=== PATIENT | male | born 1960 | race Native Hawaiian/Other Pacific Islander ===

== ENCOUNTER → 2020-08-21 15:46 | Outpatient (BNVA) | payer MEDICAID, SELFPAY | PROVIDERS: Family Provider Family Medicine; PCP Family Medicine; Visit Provider Nurse Practitioner Family | DX: Z20.828 Contact with and (suspected) exposure to other viral communicable diseases (principal); J06.9 Acute upper respiratory infection, unspecified; R43.0 Anosmia | CPT/HCPCS: 87635 ==

== ENCOUNTER 2020-09-06 12:57 | Outpatient (CLI) | payer MEDICAID, SELFPAY ==
--- NOTE | 2020-09-06 13:12 | XR_ITS ---
WS: [id number] Chest 2 views, 09/06/2020 Clinical Data: shortness of breath Comparison: PA and lateral chest, 01/16/2018. Findings: Bilateral patchy opacities are seen in both lungs. No nodules, masses or effusions are seen . The heart is enlarged. The pulmonary vascularity is not increased. No pneumothorax is seen. The aor tic arch and descending aorta show tortuosity. XR/XR chest 2V* [id number] Impression: 1. Bilateral patchy opacities throughout both lungs which may represent acute p neumonia and recommend follow-up chest x-ray in 2-3 days. 2. Cardiomegaly and atherosclerosis.
== END 2020-09-06 12:58 | disposition home or self-care (01) ==
PROVIDERS: PCP Family Medicine; Visit Provider Nurse Practitioner Family
DX: R06.02 Shortness of breath (principal); I51.7 Cardiomegaly; I70.90 Unspecified atherosclerosis
CPT/HCPCS: 71046

== ENCOUNTER 2020-09-20 14:17 | Outpatient (CLI) | payer MEDICAID, SELFPAY ==
--- NOTE | 2020-09-20 14:32 | XR_ITS ---
WS: [id number] Chest 2 views, 09/20/2020 Clinical Data: DYSPNEA ON EXERTION Comparison: PA and lateral chest, 09/06/2020. Findings: No nodules, masses or effusions are seen. The heart is enlarged. The pulmonary vascularity is not increased. No pneumothorax is seen. There are still patchy bilateral opacities in both lungs. This could represent acute and/or chronic pneumonia. The aortic arch and descending aorta are tortuo us. XR/XR chest 2V* [id number] Impression: 1 cardiomegaly and atherosclerosis. 2. Patchy opacities in both lungs which could represent acute pneumonia and rec ommend repeat chest x-ray in 5-7 days
== END 2020-09-20 14:18 | disposition home or self-care (01) ==
PROVIDERS: PCP Family Medicine; Visit Provider Family Medicine
DX: R06.09 Other forms of dyspnea (principal); U07.1 COVID-19; I51.7 Cardiomegaly; I70.90 Unspecified atherosclerosis
CPT/HCPCS: 71046

== ENCOUNTER 2020-12-12 13:18 | Outpatient (CLI) | payer MEDICAID, SELFPAY ==
--- NOTE | 2020-12-12 13:29 | XRR_ITS ---
PROCEDURE INFORMATION: Exam: XR Chest Exam date and time: 12/12/2020 1:32 PM Age: 60 years old Clinical indication: Dyspnea and shortness of breath; Additional info: Dyspnea on exertion TECHNIQUE: Imaging protocol: XR of the chest Views: 2 views. COMPARISON: CR XR chest 2V* [id number] 09/20/2020 2:37 PM FINDINGS: Lungs: Unremarkable. No consolidation. Pleural spaces: Unremarkable. No pleural effusion. No pneumothorax. Heart/Mediastinum: Unremarkable. No cardiomegaly. Bones/joints: There is a thoracolumbar spine scoliosis. XR/XR chest 2V* [id number] IMPRESSION: There are no acute concerning abnormalities.
== END 2020-12-12 13:19 | disposition home or self-care (01) ==
PROVIDERS: PCP Family Medicine; Visit Provider Family Medicine
DX: R06.09 Other forms of dyspnea (principal)
CPT/HCPCS: 71046

== ENCOUNTER → 2021-07-10 13:32 | Outpatient (BNVA) | payer MEDICAID, SELFPAY | PROVIDERS: PCP Family Medicine; Visit Provider Nurse Practitioner Family | DX: Z20.822 Contact with and (suspected) exposure to COVID-19 (principal) | CPT/HCPCS: 87635 ==

== ENCOUNTER 2022-09-05 14:07 | Emergency (ER) | payer MEDICAID, SELFPAY ==
[2022-09-05 14:14] VITALS: BP 152/94; PULSE 108; RESP 14; TEMP 36.6; O2SAT 95; BMI 46.5
[2022-09-05 16:00] VITALS: BP 160/108; PULSE 93; RESP 16; O2SAT 95
--- NOTE | 2022-09-05 16:32 | USR_ITS ---
PROCEDURE INFORMATION: Exam: US Scrotum Exam date and time: 09/05/2022 4:49 PM Age: 61 years old Clinical indication: Scrotum pain TECHNIQUE: Imaging protocol: Real-time ultrasound of the scrotum and contents with color Doppler and image documentation. COMPARISON: No relevant prior studies available. FINDINGS: Right testicle: Measures 3.9 x 2.5 x 2.2 cm. No mass. No torsion. Normal vascular flow. Left testicle: Measures 4.6 x 3 x 2.7 cm. No mass. No torsion. Normal vascular flow. Epididymides: There is increased color flow to the right epididymis. Scrotum/soft tissues: There are small bilateral hydroceles. No varicocele. US/US scrotum [id number] IMPRESSION: There is right epididymitis. There are bilateral hydroceles.
--- NOTE | 2022-09-05 16:32 | ED_ITS ---
HPI - Male Genitourinary General: Chief complaint: Urogenital-Male Stated complaint: testicle pain Time Seen by Provider: 09/05/22 16:09 Source: patient Mode of arrival: ambulatory History of Present Illness: 61-year-old male who presents to the emergency room with complaints of bilateral testicle pain for the last 2 days. Started after he was on a riding mower for an extended period of time. He denies dysuria urgency or frequency no hematuria. No fever sweats chills no previous surgeries or procedures on the testicles or scrotum. MD Complaint: testicle pain Onset (ago): day(s) (2) Duration: constant Location: right testicle and left testicle Severity: mild Quality: aching Relieving factors: none Exacerbating factors: palpation and movement Associated symptoms: Deny discharge, dysuria, fevers/chills, hematuria, nausea, rash, swelling, urinary incontinence, urinary retention, mass or vomiting Review of Systems Const: Denies: fever(s), chills, body aches, change in appetite, fatigue or malaise ENMT: Denies: throat pain, ear or mastoid pain, nasal discharge or nasal congestion Card: Denies: chest pain, edema, dyspnea on exertion or orthopnea Resp: Denies: dyspnea, productive cough or non-productive cough GI: Denies: nausea or vomiting : Reports: genital pain and testicular pain; Denies: flank pain, dysuria, urinary frequency, urinary incontinence, hematuria, testicular mass or scrotal swelling Musc: Denies: back pain Skin/Breast: Denies: rash or pruritus [facility] ED PFSH: Medical History (Updated 09/12/22 @ 06:00 by Philipp Aguirre DO) GERD (gastroesophageal reflux disease) Hyperlipidemia Hypothyroidism Type 2 diabetes mellitus Social History Smoking and tobacco status: never smoked Physical Exam Const: COMMON NORMALS: no acute distress GENERAL APPEARANCE: cooperative and comfortable ORIENTATION/CONSCIOUSNESS: Yes awake, Yes oriented to person, Yes oriented to place and Yes oriented to time HENMT: COMMON NORMALS: normocephalic and atraumatic HEAD & SCALP: normocephalic and atraumatic Resp: COMMON NORMALS: normal respiratory effort, No retractions, No use of accessory muscles and clear to auscultation bilaterally AUSCULTATION: clear to auscultation bilaterally Cardio: COMMON NORMALS: regular rate, regular rhythm and No murmurs present (Cardio) RATE: regular rate RHYTHM: regular rhythm GI: COMMON NORMALS: Soft to palpation and No hepatosplenomegaly present AUSCULTATION: Yes normoactive bowel sounds PALPATION: Yes Soft to palpation, No Tenderness to palpation present (GI), No Guarding due to palpation present (GI) and Yes No hepatosplenomegaly present : COMMON NORMALS: Yes no CVA tenderness BLADDER/KIDNEY EXAM: Yes no CVA tenderness MALE GROIN/PERINEUM EXAM: No ecchymosis, No edema, No erythema, No hernia and No inguinal lymphadenopathy PENIS: normal penis MEATUS: meatus normal SCROTUM: Yes testes descended bilaterally TESTES: Yes testicular lie normal, No testicular swelling, Yes testicular tenderness, No epididymal induration and Yes epididymal tenderness Back/Pelvis: COMMON NORMALS: no CVA tenderness Extremity: COMMON NORMALS: normal to inspection, capillary refill normal, no clubbing, cyanosis or edema, no calf tenderness and no pedal edema Neuro: SENSORIUM/ORIENTATION: Yes oriented to person, Yes oriented to place and Yes oriented to time Skin: COMMON NORMALS: no rashes or lesions noted GENERAL SKIN EXAM: no rashes or lesions noted Course Vital Signs: Vital signs: Vital Signs Temperature 97.8 F 09/05/22 14:14 Pulse Rate 96 09/05/22 18:22 Respiratory Rate 16 09/05/22 18:22 Blood Pressure 146/92 09/05/22 18:22 Pulse Oximetry 94 09/05/22 18:22 Oxygen Delivery Me thod 09/05/22 14:14 MDM - Male Medical Decision Making Ultrasound shows epididymitis. Suspect this is mechanical from riding in the morning for an extended period of time started on anti-inflammatories. He is not having any dysuria urgency or frequency. Return if he has further problems. UA did show white blood cells. Since he is not currently having symptoms we will wait till culture returns. Medical Records I reviewed the patient's medical records. Lab Data I reviewed the patient's lab results. 09/05/22 18:18 09/05/22 18:18 Radiology Impressions Scrotum Ultrasound 09/05/22 16:32 IMPRESSION: There is right epididymitis. There are bilateral hydroceles. Laboratory Results WBC 8.8 10^3/uL (4.0-10.0) 09/05/22 18:18 RBC 4.88 10^6/uL (4.1-5.3) 09/05/22 18:18 Hgb 15.8 g/dL (11.7-16.6) 09/05/22 18:18 Hct 46.5 % (42.0-52.0) 09/05/22 18:18 MCV 95.3 fl (80-94) H 09/05/22 18:18 MCH 32.4 pg (28.0-34.0) 09/05/22 18:18 MCHC 34.0 g/dL (30.0-36.0) 09/05/22 18:18 RDW 12.6 % (12.1-15.1) 09/05/22 18:18 Plt Count 235 10^3/cmm (130-400) 09/05/22 18:18 MPV 10.2 fL (7.4-10.4) 09/05/22 18:18 Neut % (Auto) 68.8 % 09/05/22 18:18 Lymph % (Auto) 22.1 % 09/05/22 18:18 [place] % (Auto) 6.7 % 09/05/22 18:18 Eos % (Auto) 1.0 % 09/05/22 18:18 Baso % (Auto) 0.9 % 09/05/22 18:18 Neut # (Auto) 6.02 10^3/uL (1.8-7.7) 09/05/22 18:18 Lymph # (Auto) 1.9 10^3/uL (0.8-4.8) 09/05/22 18:18 [place] # (Auto) 0.6 10^3/uL (0.2-0.9) 09/05/22 18:18 Eos # (Auto) 0.1 10^3/uL (0.0-0.8) 09/05/22 18:18 Baso # (Auto) 0.1 10^3/uL (0.0-0.1) 09/05/22 18:18 Nucleated RBC % (auto) 0 % 09/05/22 18:18 Nucleated RBCs # 0.0 /100WBC 09/05/22 18:18 Sodium 136 mmol/L (136-145) 09/05/22 18:18 Potassium 4.0 mmol/L (3.5-5.1) 09/05/22 18:18 Chloride 98 mmol/L (98-107) 09/05/22 18:18 Carbon Dioxide 24 mmol/L (22-29) 09/05/22 18:18 Anion Gap 18.0 (5-19) 09/05/22 18:18 BUN 8 mg/dL (8-23) 09/05/22 18:18 Creatinine 0.8 mg/dL (0.7-1.2) 09/05/22 18:18 GFR Calculation 98.3 mL/min (90-130) 09/05/22 18:18 Glucose 171 mg/dL (65-115) H 09/05/22 18:18 Calculated Osmolality 284 mOsm/kg (285-295) L 09/05/22 18:18 Calcium 9.1 mg/dL (8.5-10.5) 09/05/22 18:18 Urine Color Yellow (Yellow) 09/05/22 17:33 Urine Appearance Hazy (CLEAR) A 09/05/22 17:33 Urine pH 6.5 (5-7) 09/05/22 17:33 Ur Specific [place] 1.010 (1.005-1.030) 09/05/22 17:33 Urine Protein Neg (Negative) 09/05/22 17:33 Urine Glucose (UA) Norm (Normal) 09/05/22 17:33 Urine Ketones Negative (Negative) 09/05/22 17:33 Urine Blood Neg (Negative) 09/05/22 17:33 Urine Nitrate Negative (Negative) 09/05/22 17:33 Urine Bilirubin Neg (Negative) 09/05/22 17:33 Urine Urobilinogen Norm mg/dL (Negative) 09/05/22 17:33 Ur Leukocyte Esterase Trace (Negative) H 09/05/22 17:33 Urine RBC 0-4 /hpf (0-2) H 09/05/22 17:33 Urine WBC 10-15 /hpf (0-5) H 09/05/22 17:33 Ur Squamous Epith Cells 0-4 /hpf (0-5) H 09/05/22 17:33 Amorphous Sediment Not Reportable 09/05/22 17:33 Urine Bacteria 3+ /hpf (NONE) H 09/05/22 17:33 Discharge Plan Discharge Patient Disposition: Home Clinical Impression: Epididymitis Condition: Stable Prescriptions: New diclofenac sodium 75 mg tablet,delayed release (DR/EC) 75 mg PO Q12H PRN (Reason: pain) Qty: 20 0RF No Action allopurinol 300 mg tablet 300 mg PO DAILY metformin 1,000 mg tablet 1,000 mg PO BID lovastatin 20 mg tablet 20 mg PO DAILY lisinopril 40 mg tablet 40 mg PO DAILY levothyroxine 25 mcg tablet 25 mcg PO DAILY omeprazole 20 mg capsule,delayed release(DR/EC) 20 mg PO DAILY cefdinir 300 mg capsule 300 mg PO Q12H 10 Days Qty: 20 0RF Discharge Orders: Discharge ED (Routine); Ordered 09/05/22 Ordered By: Philipp Aguirre Referrals: Ceasar St MD [Primary Care Provider] - Discharge Diet: Usual diet Discharge Activity: Limit activity as instructed Activity Restrictions/Additional Instructions: You were seen today for testicular pain ultrasound showed epididymitis. Its likely from when you were riding lawnmower. Recommend good testicular support and anti-inflammatories for the next several days avoid any strenuous activity. Coding Level of Care Code ED Chocolate Finisher for Melly Horton
[2022-09-05 17:30] VITALS: BP 146/92; PULSE 98; O2SAT 93
[2022-09-05 18:13] LABS: Urine Appearance Hazy (CLEAR); Urine Color Yellow (Yellow); pH Urine 6.5 (5-7)
[2022-09-05 18:14] LABS: Add Urine Culture? Yes; Add Urine Microscopic? YES; Bacteria Urine 3+ /hpf; Bilirubin Urine Neg (Negative); Blood Urine Neg (Negative); Glucose Urine UA Norm (Normal); Ketones Urine Negative (Negative); Leukocyte Esterase Urine Trace (Negative); Nitrate Urine Negative (Negative); Protein Urine Neg (Negative); RBC Urine 0-4 /hpf (0-2); Squamous Epithelial Cell Urine 0-4 /hpf (0-5); Urobilinogen Urine Norm (Negative)
[2022-09-05 18:22] VITALS: BP 146/92; PULSE 96; RESP 16; O2SAT 94
[2022-09-05 18:26] LABS: Basophils # 0.1 10^3/uL (0.0-0.1); Basophils % 0.9 %; Eosinophils # 0.1 10^3/uL (0.0-0.8); Hematocrit 46.5 % (42.0-52.0); Hemoglobin 15.8 g/dL (11.7-16.6); Lymphocytes # 1.9 10^3/uL (0.8-4.8); Lymphocytes % 22.1 %; Mean Corpuscular Hemoglobin 32.4 pg (28.0-34.0); Mean Corpuscular Volume 95.3 fl (80-94); Mean Platelet Volume 10.2 fL (7.4-10.4); Monocytes # 0.6 10^3/uL (0.2-0.9); Monocytes % 6.7 %; Neutrophils # 6.02 10^3/uL (1.8-7.7); Neutrophils % 68.8 %; Nucleated Red Blood Cells % 0 %; Platelet Count 235 10^3/cmm (130-400); Red Blood Count 4.88 10^6/uL (4.1-5.3); Red Cell Distribution Width 12.6 % (12.1-15.1); White Blood Count 8.8 10^3/uL (4.0-10.0)
[2022-09-05 18:45] LABS: Blood Urea Nitrogen 8 mg/dL (8-23); Calcium 9.1 mg/dL (8.5-10.5); Carbon Dioxide 24 mmol/L (22-29); Chloride 98 mmol/L (98-107); Creatinine Clr Calc Pharmacy 149.2123; Glomerular Filtration Rate 98.3 mL/min (90-130); Glucose 171 mg/dL (65-115); Osmolality Calculated 284 mOsm/kg (285-295); Sodium 136 mmol/L (136-145)
== END 2022-09-05 18:23 | disposition home or self-care (01) ==
PROVIDERS: Emergency Provider Family Medicine; PCP Family Medicine
DX: N45.1 Epididymitis (principal); Z79.84 Long term (current) use of oral hypoglycemic drugs; E78.5 Hyperlipidemia, unspecified; E11.9 Type 2 diabetes mellitus without complications
CPT/HCPCS: 76870; 80048; 81001; 85025; 87077; 87086; 87186; 87491; 87591; 87661; 99284

== ENCOUNTER 2022-09-18 15:18 | Inpatient (IN) | payer MEDICAID, SELFPAY ==
[2022-09-18] VITALS (45 sets, daily range): BP systolic 108–155; BP diastolic 64–96; PULSE 61–96; RESP 16–25; TEMP 36.3–37; O2SAT 92–100; BMI 45.8
--- NOTE | 2022-09-18 16:11 | USR_ITS ---
PROCEDURE INFORMATION: Exam: US Scrotum Exam date and time: 09/18/2022 4:25 PM Age: 61 years old Clinical indication: Swelling, testicles or scrotum; Additional info: Testicle pain TECHNIQUE: Imaging protocol: Real-time ultrasound of the scrotum and contents with color Doppler and image documentation. COMPARISON: US scrotum [id number] 09/05/2022 4:49 PM FINDINGS: Right testicle: Normal. No mass. No torsion. Normal vascular flow. Left testicle: Normal. No mass. No torsion. Normal vascular flow. Epididymides: Normal. Scrotum/soft tissues: Large loculated right hydrocele. US/US scrotum [id number] IMPRESSION: 1. Testicles demonstrate color blood flow bilaterally. 2. Large loculated right hydrocele.
--- NOTE | 2022-09-18 16:23 | ED_ITS ---
HPI - Male Genitourinary General: Chief complaint: Urogenital-Male Stated complaint: testicle pain Time Seen by Provider: 09/18/22 16:23 History of Present Illness: Mr. Menendez is a 61-year-old gentleman with history of hypertension, hyperlipidemia, diabetes, obesity presenting to the emergency department due to testicular pain. He reports initially noticing symptoms on 09/05 with nontraumatic onset of right testicular swelling with mild discomfort. He was seen by PCP and then the emergency department and had an ultrasound performed which demonstrated right-sided epididymitis. He was discharged home on NSAIDs however subsequently prescription for antibiotics called in for E. c sj. He reports being on cefdinir and levofloxacin and despite this has had increasing symptoms. A few days ago he saw PCP after noticing still increased swelling despite treatment however at that time still isolated to testicle. This morning he noted increased redness and pain in the actual scrotum as well. Still able to urinate without significant symptoms. Denies rectal pain or pain with bowel movements, small amount of diarrhea earlier. No other signs of systemic illness. Overall course of symptoms is worsened despite treatment. Intensity is moderate to severe. No other specific changes in health, exacerbating, or alleviating factors identified. Onset (ago): week(s) Duration: progressively worsening Location: right testicle Radiation: right inguinal region Severity: severe Quality: aching Relieving factors: none Exacerbating factors: palpation and movement Context: other Review of Systems General: Reports: 10 or more systems reviewed and unremarkable except in HPI and below PFSH ED PFSH: Medical History Epididymal abscess GERD (gastroesophageal reflux disease) Hyperlipidemia Hypertension Hypothyroidism Morbid obesity Type 2 diabetes mellitus Social History Smoking and tobacco status: never smoked Physical Exam Const: COMMON NORMALS: alert GENERAL APPEARANCE: cooperative and well developed NUTRITIONAL APPEARANCE: obese HENMT: COMMON NORMALS: normocephalic and atraumatic HEAD & SCALP: normocephalic and atraumatic Eye: COMMON NORMALS: conjunctivae normal CONJUNCTIVA: Yes conjunctivae normal SCLERA: sclerae normal Neck/C-Spine: COMMON NORMALS: supple GENERAL: Yes trachea midline Resp: COMMON NORMALS: clear to auscultation bilaterally EFFORT & INSPECTION: Yes able to speak in complete sentences AUSCULTATION: clear to auscultation bilaterally Cardio: COMMON NORMALS: regular rate and regular rhythm RATE: regular rate RHYTHM: regular rhythm GI: COMMON NORMALS: Soft to palpation PALPATION: Yes Soft to palpation, Yes Tenderness to palpation present (GI) (Suprapubic), No Guarding due to palpation present (GI) and No Rigid due to palpation : OTHER: Marked right-sided scrotal edema with tenderness to palpation. Mild overlying skin changes though no convincing evidence of acute cellulitis. Unremarkable penis. No urethral discharge or abnormality. Extremity: GENERAL: Yes normal exam except as noted and No edema Neuro: COMMON NORMALS: moves all extremities SENSORIUM/ORIENTATION: Yes alert and No Orientation impaired Psych: COMMON NORMALS: mental status grossly normal and Normal thought process present THOUGHT PROCESS: Normal thought process present Course Vital Signs: Vital signs: Vital Signs Temperature 97.7 F 09/23/22 08:00 Pulse Rate 96 09/23/22 09:09 Respiratory Rate 18 09/23/22 10:57 Blood Pressure 118/73 09/23/22 08:00 Pulse Oximetry 95 09/23/22 09:09 Oxygen Delivery Me thod 09/23/22 09:09 Oxygen Flow Rate 2 09/20/22 20:00 MDM - Male Medical Decision Making 61-year-old gentleman presenting with testicular pain. Previously been seen and evaluated and found epididymitis but was treated with antibiotics however symptoms have worsened. Uncomfortable appearing on exam with significant scrotal swelling on the right hand tenderness palpation. Per patient report this has worsened significantly even over the past 24 hours. Labs notable for leukocytosis, metabolic panel with some evidence of metabolic arrangement likely secondary to elevated lactic acid. Transaminitis likely secondary to generalized illness. Urinary tract infection findings appear to mildly improved. Repeat scrotal ultrasound read as similar however upon interpretation by myself and urology appears to show significant differences. Given patient's history of obesity, worsening symptoms despite antibiotics, diabetes CT imaging felt to be warranted to rule out deeper infection. CT without evidence of deep tracking infection. Urology service consulted and came to evaluate patient in the emergency department. Plan to take to the OR. Patient treated in the emergency room with IV fluids, antibiotics, analgesia. Most likely cause patient symptoms is urogenital infection perhaps related to testicular abscess versus peritesticular fluid collection resulting in sepsis. The results of ED evaluation were discussed with the patient including plan for admission due to requirement for level of care not available if discharged to prevent significant worsening/deterioration. Patient agreeable with plan. Discussed with hospitalist service who was agreeable to admit patient. Medical Records I reviewed the patient's medical records. Lab Data I reviewed the patient's lab results. 09/18/22 16:55 09/18/22 16:55 Radiology Impressions Scrotum Ultrasound 09/18/22 16:11 IMPRESSION: 1. Testicles demonstrate color blood flow bilaterally. 2. Large loculated right hydrocele. Pelvis CT 09/18/22 17:14 IMPRESSION: 1. Suspected layering hyperdense material in the urinary bladder, perhaps reflecting blood products or inflammatory exudate, please correlate clinically. 2. Right complex hydrocele as seen on same-day testicular ultrasound. 3. Diverticulosis without diverticulitis. 4. Scrotal edema seen, nonspecific. Laboratory Results WBC 16.7 10^3/uL (4.0-10.0) H 09/18/22 16:55 RBC 4.43 10^6/uL (4.1-5.3) 09/18/22 16:55 Hgb 14.2 g/dL (11.7-16.6) 09/18/22 16:55 Hct 42.4 % (42.0-52.0) 09/18/22 16:55 MCV 95.7 fl (80-94) H 09/18/22 16:55 MCH 32.1 pg (28.0-34.0) 09/18/22 16:55 MCHC 33.5 g/dL (30.0-36.0) 09/18/22 16:55 RDW 12.6 % (12.1-15.1) 09/18/22 16:55 Plt Count 322 10^3/cmm (130-400) 09/18/22 16:55 MPV 9.6 fL (7.4-10.4) 09/18/22 16:55 Neut % (Auto) 78.6 % 09/18/22 16:55 Lymph % (Auto) 13.9 % 09/18/22 16:55 [place] % (Auto) 5.2 % 09/18/22 16:55 Eos % (Auto) 0.8 % 09/18/22 16:55 Baso % (Auto) 0.3 % 09/18/22 16:55 Neut # (Auto) 13.11 10^3/uL (1.8-7.7) H 09/18/22 16:55 Lymph # (Auto) 2.3 10^3/uL (0.8-4.8) 09/18/22 16:55 [place] # (Auto) 0.9 10^3/uL (0.2-0.9) 09/18/22 16:55 Eos # (Auto) 0.1 10^3/uL (0.0-0.8) 09/18/22 16:55 Baso # (Auto) 0.1 10^3/uL (0.0-0.1) 09/18/22 16:55 Nucleated RBC % (auto) 0 % 09/18/22 16:55 Nucleated RBCs # 0.0 /100WBC 09/18/22 16:55 ESR 117 mm/hr (0-10) H 09/18/22 16:55 Sodium 134 mmol/L (136-145) L 09/18/22 16:55 Potassium 4.6 mmol/L (3.5-5.1) 09/18/22 16:55 Chloride 99 mmol/L (98-107) 09/18/22 16:55 Carbon Dioxide 17 mmol/L (22-29) L 09/18/22 16:55 Anion Gap 22.6 (5-19) H 09/18/22 16:55 BUN 15 mg/dL (8-23) 09/18/22 16:55 Creatinine 1.2 mg/dL (0.7-1.2) 09/18/22 16:55 GFR Calculation 61.6 mL/min (90-130) L 09/18/22 16:55 Glucose 144 mg/dL (65-115) H 09/18/22 16:55 Calculated Osmolality 281 mOsm/kg (285-295) L 09/18/22 16:55 Lactic Acid 4.0 mmol/L (0.5-2.2) H 09/18/22 16:55 Calcium 9.0 mg/dL (8.5-10.5) 09/18/22 16:55 Total Bilirubin 0.4 mg/dL (0.15-1.2) 09/18/22 16:55 AST 68 U/L (0-40) H 09/18/22 16:55 ALT 72 U/L (0-41) H 09/18/22 16:55 Alkaline Phosphatase 133 U/L (40-130) H 09/18/22 16:55 C-Reactive Protein 202.7 mg/L (0.0-4.9) H 09/18/22 16:55 Total Protein 8.2 g/dL (6.6-8.7) 09/18/22 16:55 Albumin 3.6 g/dL (3.5-5.2) 09/18/22 16:55 Globulin 4.6 g/dL (1.3-4.6) 09/18/22 16:55 Urine Color Yellow (Yellow) 09/18/22 19:01 Urine Appearance Clear (CLEAR) 09/18/22 19: Urine pH 5 (5-7) 09/18/22 19:01 Ur Specific [place] 1.000 (1.005-1.030) L 09/18/22 19:01 Urine Protein 1+ (Negative) H 09/18/22 19:01 Urine Glucose (UA) Norm (Normal) 09/18/22 19:01 Urine Ketones Negative (Negative) 09/18/22 19:01 Urine Blood Neg (Negative) 09/18/22 19: Urine Nitrate Negative (Negative) 09/18/22 19:01 Urine Bilirubin Neg (Negative) 09/18/22 19:01 Urine Urobilinogen Norm mg/dL (Negative) 09/18/22 19:01 Ur Leukocyte Esterase Trace (Negative) H 09/18/22 19:01 Urine RBC None /hpf (0-2) 09/18/22 19:01 Urine WBC 0-4 /hpf (0-5) H 09/18/22 19:01 Ur Squamous Epith Cells None /hpf (0-5) 09/18/22 19: Amorphous Sediment Not Reportable 09/18/22 19: Urine Bacteria None /hpf (NONE) 09/18/22 19:01 Critical Care Time Critical Care Time: Critical Care Time: Yes Total Critical Care Time: 35 Attestation: Due to a high probability of clinically significant, possibly life threatening deterioration, the patient required my highest level of attention and preparedness to intervene emergently and I personally spent this critical care time directly and personally managing the patient. This critical care time included obtaining a history; examining the patient; pulse oximetry; ordering and review of laboratory and imaging studies; arranging urgent treatment with development of a management plan; evaluation of patient's response to treatment; frequent reassessment; and, discussions with other providers as applicable. It was exclusive of separately billable procedures. Primary system involved is infectious disease/ Discharge Plan Discharge Patient Disposition: Admitted As Inpatient Admit Provider: Adam Garnica Clinical Impression: Sepsis, Bacterial infection of urogenital system Condition: Stable Discharge Diet: Usual diet Discharge Activity: Increase activity as tolerated Coding Level of Care Code ED Astrophysics Teacher for Melly Horton
[2022-09-18] MEDS: morphine 4 mg/mL SDV 1 mL IVP (17:08)
[2022-09-18 17:10] LABS: Basophils # 0.1 10^3/uL (0.0-0.1); Basophils % 0.3 %; Eosinophils # 0.1 10^3/uL (0.0-0.8); Eosinophils % 0.8 %; Hematocrit 42.4 % (42.0-52.0); Hemoglobin 14.2 g/dL (11.7-16.6); Lymphocytes # 2.3 10^3/uL (0.8-4.8); Lymphocytes % 13.9 %; Mean Corpuscular HGB Conc 33.5 g/dL (30.0-36.0); Mean Corpuscular Hemoglobin 32.1 pg (28.0-34.0); Mean Corpuscular Volume 95.7 fl (80-94); Mean Platelet Volume 9.6 fL (7.4-10.4); Monocytes # 0.9 10^3/uL (0.2-0.9); Monocytes % 5.2 %; Neutrophils # 13.11 10^3/uL (1.8-7.7); Neutrophils % 78.6 %; Nucleated Red Blood Cells % 0 %; Platelet Count 322 10^3/cmm (130-400); Red Blood Count 4.43 10^6/uL (4.1-5.3); Red Cell Distribution Width 12.6 % (12.1-15.1); White Blood Count 16.7 10^3/uL (4.0-10.0)
--- NOTE | 2022-09-18 17:14 | CTR_ITS ---
PROCEDURE INFORMATION: Exam: CT Pelvis With Contrast Exam date and time: 09/18/2022 5:26 PM Age: 61 years old Clinical indication: Mass, lump, or swelling; Other: Scrotum; Additional info: Scrotal swelling/redness, diabetic, eval deeper infection TECHNIQUE: Imaging protocol: Computed tomography of the pelvis with contrast. Radiation optimization: All CT scans at this facility use at least one of these dose optimization techniques: automated exposure control; mA and/or kV adjustment per patient size (includes targeted exams where dose is matched to clinical indication); or iterative reconstruction. Contrast material: OMNIPAQUE 350; Contrast volume: 95 ml; Contrast route: INTRAVENOUS (IV); COMPARISON: US scrotum [id number] 09/18/2022 4:25 PM RADIATION DOSE METRICS: Total DLP (mGy-cm): 1347.47 FINDINGS: Stomach and bowel: Diverticulosis without diverticulitis. Appendix: No evidence of appendicitis. Intraperitoneal space: Unremarkable. No free air. No significant fluid collection. Lymph nodes: Unremarkable. No enlarged lymph nodes. Urinary bladder: Suspected layering hyperdense material in the urinary bladder, perhaps reflecting blood products or inflammatory exudate, please correlate clinically. Reproductive: Right complex hydrocele as seen on same-day testicular ultrasound. Scrotal edema seen. Bones/joints: Unremarkable. No acute fracture. No dislocation. Soft tissues: Unremarkable. CT/CT pelvis w con* [id number] IMPRESSION: 1. Suspected layering hyperdense material in the urinary bladder, perhaps reflecting blood products or inflammatory exudate, please correlate clinically. 2. Right complex hydrocele as seen on same-day testicular ultrasound. 3. Diverticulosis without diverticulitis. 4. Scrotal edema seen, nonspecific.
[2022-09-18 17:28] LABS: Alanine Aminotransferase 72 U/L (0-41); Albumin Level 3.6 g/dL (3.5-5.2); Alkaline Phosphatase 133 U/L (40-130); Anion Gap 22.6 (5-19); Aspartate Amino Transferase 68 U/L (0-40); Blood Urea Nitrogen 15 mg/dL (8-23); Carbon Dioxide 17 mmol/L (22-29); Chloride 99 mmol/L (98-107); Globulin 4.6 g/dL (1.3-4.6); Glomerular Filtration Rate 61.6 mL/min (90-130); Glucose 144 mg/dL (65-115); Osmolality Calculated 281 mOsm/kg (285-295); Potassium 4.6 mmol/L (3.5-5.1); Sodium 134 mmol/L (136-145); Total Bilirubin 0.4 mg/dL (0.15-1.2); Total Protein 8.2 g/dL (6.6-8.7)
[2022-09-18] MEDS: piperacillin-tazobactam 4.5 GM in sodium chloride 0.9% (plus) 50 ML IV (18:00)
[2022-09-18 18:01] LABS: C Reactive Protein 202.7 mg/L (0.0-4.9)
[2022-09-18] MEDS: sodium chloride 0.9% 2,328 ML 2328 ML IV (18:01)
[2022-09-18 18:04] LABS: Erythrocyte Sedimentation Rate 117 mm/hr (0-10)
--- NOTE | 2022-09-18 18:46 | P.HP_ITS ---
Providers/Chief Complaint Admitting Physician: Danika Primary Care Provider: Ceasar St MD Chief Complaint: testicle pain History of Present Illness Tesfaye Menendez is a 61 year old male admitted through the emergency department with acute right hemiscrotum. About 2 weeks ago he was seen in urgent care with complaints of increasing pain in the right hemiscrotum of 2-day duration and there was concern for possible torsion or infection so he was sent to the emergency department for evaluation for an ultrasound. Ultrasound showed normal testicles bilaterally and evidence of right epididymitis. Was placed on cefdinir. Urine culture done that day demonstrated E. coli resistant to fluoroquinolones, sensitive to ceftriaxone, cefuroxime and cefepime. Sensitive also to Bactrim tetracycline. He apparently had also been on Levaquin sometime during that time. Since that his symptoms have progressed. He started noticing more severe swelling and redness of the scrotum over the last 24 to 48 hours. Denied fever and chills. Did feel lousy overall though. No chest pain. The pain was becoming quite severe. A repeat ultrasound in the emergency department revealed a dramatically change clinical picture. The right testicle no longer looks normal. Per my eye it appeared that possibly was at the very minimum very edematous but potentially undergoing liquefied necrosis. A CT scan of the pelvis was performed. He confirmed a large fluid collection in the right hemiscrotum that corresponded to loculated fluid collection within the tunica vaginalis on the right. It was hard for me to identify the testicle itself on that study. On physical exam he has a tense indurated right hemiscrotum with testicle not palpable. Consistent with the large intra tunica vaginalis fluid collection and inflammatory process. The cord proximal to the tunica vaginalis also was indurated and tender. There is no crepitus. No fluctuance or pointing within the scrotum. It was quite uncomfortable for him though. Work-up in the emergency department showed white count had doubled from 8.8- 16.7. Creatinine was 1.2. Lactic acid 4.0 Urinalysis pending. Liver functions mildly elevated. Urine from 05 September showed 10-15 white cells and 3+ bacteria. Other comorbidities include diabetes, morbid obesity, hypertension. I recommended urgent scrotal exploration possible right orchiectomy. Hospitalist have been consulted for medical management given his other medical problems as outlined above. Explained in detail to the patient these findings and the very significant differential between his scrotal ultrasound on 09/05/2022 and today's. Hopefully this is just a scrotal abscess or inflammatory fluid collection but clearly he has gotten worse on antibiotics and there is a distinct structural change that is occurred in the right testicle per my review of the images. He will be emergently taken to the operating room as time available. Review of Systems Const: Reports: change in appetite and malaise; Denies: fever(s) or chills Eyes: Denies: change in vision or yellow eyes ENMT: Denies: hoarseness Card: Reports: dyspnea on exertion; Denies: chest pain or palpitations Resp: Denies: dyspnea or productive cough GI: Denies: abdominal pain or vomiting : Reports: genital pain and other (See HPI); Denies: flank pain or hematuria Musc: Denies: extremity swelling or joint redness Skin/Breast: Denies: rash or non-healing lesions Neuro: Denies: confusion or seizure-like activity Psych: Denies: anxiety or depression Endo: Denies: flushing Phan/Lymph: Denies: easy bruising or easy bleeding All/Imm: Denies: acute wheezing or itchy eyes Medications/Allergies Home Medications Medication Instructions Recorded Confirmed Last Taken Type allopurinol 300 mg tablet 300 mg PO DAILY 09/06/20 09/18/22 09/18/22 History diclofenac sodium 75 mg 75 mg PO Q12H PRN pain #20 tabs 09/16/22 09/18/22 Rx tablet,delayed release tramadol 100 mg tablet 100 mg PO Q6H PRN pain #30 tabs 09/16/22 09/18/22 Unknown Rx albuterol sulfate 90 mcg/actuation 2 puff inhalation Q6H PRN 09/18/22 09/18/22 Unknown History aerosol inhaler (ProAir HFA) Shortness Of Breath Or Wheezing atorvastatin 40 mg tablet 40 mg PO DAILY 09/18/22 09/18/22 09/18/22 History cefdinir 300 mg capsule 300 mg PO Q12H 09/18/22 09/18/22 09/18/22 History dulaglutide 1.5 mg/0.5 mL 1.5 mg SUBCUT Q7D 12/09/18/22 09/13/22 History subcutaneous pen injector (Trulicity) glipizide 10 mg tablet, extended 10 mg PO BID 09/18/22 09/18/22 09/18/22 History release 24 hr levofloxacin 500 mg tablet 500 mg PO DAILY 09/18/22 09/18/22 09/18/22 History levothyroxine 50 mcg tablet 50 mcg PO DAILY 09/18/22 09/18/22 09/18/22 History lisinopril 30 mg tablet 30 mg PO DAILY 09/18/22 09/18/22 09/18/22 History metformin 500 mg tablet,extended 1,000 mg PO BID 09/18/22 09/18/22 09/18/22 History release 24 hr pantoprazole 40 mg tablet,delayed 40 mg PO DAILY 09/18/22 09/18/22 09/18/22 History release zinc acetate 50 mg (zinc) capsule 50 mg PO DAILY 09/18/22 09/18/22 09/18/22 History Allergies Allergy/AdvReac Type Severity Reaction Status Date / Time No Known Allergies Allergy Verified 09/18/22 17:14 PFSH Acute PFSH: Medical History (Updated 09/18/22 @ 19:00 by Adam Garnica MD) Epididymal abscess GERD (gastroesophageal reflux disease) Hyperlipidemia Hypertension Hypothyroidism Morbid obesity Swelling of right half of scrotum Type 2 diabetes mellitus Social History Smoking and tobacco status: never smoked Vitals/I&O/Wt Last Vital Signs Temp 98.6 F 09/18/22 15:51 Pulse 88 09/18/22 15:51 Resp 18 09/18/22 17:08 BP 108/84 09/18/22 18:40 Pulse Ox 98 09/18/22 18:40 O2 Del Method 09/18/22 15:51 Weight last 48 hrs Weight 338 lb Physical Exam Const: COMMON NORMALS: alert and well nourished GENERAL APPEARANCE: well kempt and well developed ORIENTATION/CONSCIOUSNESS: not confused HENMT: COMMON NORMALS: normocephalic HEAD & SCALP: normal to inspection and normocephalic Eye: COMMON NORMALS: conjunctivae normal and no scleral icterus CONJUNCTIVA: Yes conjunctivae normal Neck/C-Spine: GENERAL: Yes normal visual inspection Lymph: OTHER: Some peripheral edema, no palpable lymph nodes Resp: COMMON NORMALS: normal respiratory effort EFFORT & INSPECTION: Yes able to speak in complete sentences, No labored and No Actively coughing OTHER: No audible wheezes Cardio: COMMON NORMALS: regular rate GI: OTHER: Truncal obesity. No masses felt. No significant tenderness. No skin crepitus. : OTHER: Uncircumcised phallus. Retractable foreskin. Distinctly abnormal appearing scrotum. The left testicle is easily palpable and there is no significant findings within the left hemiscrotum of concern. Normal epididymis etc. The right side is tense consistent with intra tunica vaginalis fluid or inflammatory changes. There is distinct redness of the skin. No crepitus. No pointing. Findings are consistent with an intrascrotal abscess/epididymal abscess which corresponds to the findings on ultrasound and CT scan. I am suspicious that the right testicle is lost in undergoing liquefaction necrosis. Neuro: COMMON NORMALS: no focal motor deficits SENSORIUM/ORIENTATION: Yes alert Psych: COMMON NORMALS: mental status grossly normal APPEARANCE: Yes grossly normal and Yes well kempt ATTITUDE: Yes calm and Yes engaged Skin: COMMON NORMALS: no rashes or lesions noted and no jaundice GENERAL SKIN EXAM: no rashes or lesions noted Data 09/18/22 16:55 09/18/22 16:55 Micro: Microbiology 09/18/22 16:55 Blood Culture - Preliminary Blood SPECIMEN COLLECTED 09/18/22 16:58 Blood Culture - Preliminary Blood SPECIMEN COLLECTED A&P Assessment and plan (1) Epididymal abscess: (2) Morbid obesity: (3) Sepsis: Attestations Medical Necessity Statement*: Acute right hemiscrotum. Need surgical exploration. 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
[2022-09-18 18:56] LABS: Reflex Lactate Order REFLEX LACTIC ORDERD
[2022-09-18 19:04] LABS: Urine Appearance Clear (CLEAR); Urine Color Yellow (Yellow)
[2022-09-18 19:05] LABS: Add Urine Microscopic? YES; Bilirubin Urine Neg (Negative); Blood Urine Neg (Negative); Glucose Urine UA Norm (Normal); Ketones Urine Negative (Negative); Leukocyte Esterase Urine Trace (Negative); Nitrate Urine Negative (Negative); Protein Urine 1+ (Negative); Urobilinogen Urine Norm (Negative); pH Urine 5 (5-7)
[2022-09-18 19:12] LABS: WBC Urine 0-4 /hpf (0-5)
[2022-09-18 19:13] LABS: Add Urine Culture? No
--- NOTE | 2022-09-18 19:27 | P.CONIM_ITS ---
Providers/Reason For Consult Consulting Physician/Specialty*: Anabelle Whitney MD/ Infectious Disease Reason for Consult*: Scrotal infection Requesting Physician: Dr. Zapien Primary Care Provider: Ceasar St MD History of Present Illness History of Present Illness Tesfaye Menendez is a 61 year old male with PMh HTN, DM, GERD who was recently seen 2 weeks ago in urgent care with complaints of right hemiscrotum pain. There was evidence of cellulitis and right epididymitis for which she was placed on cefdinir and levofloxacin. He presented to the emergency room today due to progression of symptoms. His swelling increased over the last 24 to 48 hours. The right testicle appeared to be edematous and possibly undergoing liquefied necrosis. Large fluid collection was seen in the right hemiscrotum. Patient is being taken emergently to the operating room for surgical exploration and right orchiectomy. History is gathered from talking to ER physician and review of the chart. Patient is currently in the OR therefore unable to examine him at this time. Review of Systems General: Reports: Other Medications/Allergies Home Medications Medication Instructions Recorded Confirmed Last Taken Type allopurinol 300 mg tablet 300 mg PO DAILY 09/06/20 09/18/22 09/18/22 History diclofenac sodium 75 mg 75 mg PO Q12H PRN pain #20 tabs 09/16/22 09/18/22 09/18/22 Rx tablet,delayed release tramadol 100 mg tablet 100 mg PO Q6H PRN pain #30 tabs 09/16/22 09/18/22 Unknown Rx albuterol sulfate 90 mcg/actuation 2 puff inhalation Q6H PRN 09/18/22 09/18/22 Unknown History aerosol inhaler (ProAir HFA) Shortness Of Breath Or Wheezing atorvastatin 40 mg tablet 40 mg PO DAILY 09/18/22 09/18/22 09/18/22 History cefdinir 300 mg capsule 300 mg PO Q12H 09/18/22 09/18/22 09/18/22 History dulaglutide 1.5 mg/0.5 mL 1.5 mg SUBCUT Q7D 09/18/22 09/18/22 09/13/22 History subcutaneous [facility] ([facility] glipizide 10 mg tablet, extended 10 mg PO BID 09/18/22 09/18/22 09/18/22 History release 24 hr levofloxacin 500 mg tablet 500 mg PO DAILY 09/18/22 09/18/22 09/18/22 History levothyroxine 50 mcg tablet 50 mcg PO DAILY 09/18/22 09/18/22 09/18/22 History lisinopril 30 mg tablet 30 mg PO DAILY 09/18/22 09/18/22 09/18/22 History metformin 500 mg tablet,extended 1,000 mg PO BID 09/18/22 09/18/22 09/18/22 History release 24 hr pantoprazole 40 mg tablet,delayed 40 mg PO DAILY 09/18/22 09/18/22 09/18/22 History release zinc acetate 50 mg (zinc) capsule 50 mg PO DAILY 09/18/22 09/18/22 09/18/22 History Allergies Allergy/AdvReac Type Severity Reaction Status Date / Time No Known Allergies Allergy Verified 09/18/22 17:14 Current Medications Generic Name Dose Route Start Last Admin Trade Name Freq PRN Reason Stop Dose Admin Vancomycin HCl 2,000 mg/ 500 mls @ 250 mls/hr 09/18/22 17:40 09/18/22 18:36 Sodium Chloride IV 09/18/22 19:39 250 mls/hr ONCE ONE Administration Protocol PFSH Acute PFSH: Medical History Epididymal abscess GERD (gastroesophageal reflux disease) Hyperlipidemia Hypertension Hypothyroidism Morbid obesity Swelling of right half of scrotum Type 2 diabetes mellitus Social History Smoking and tobacco status: never smoked Vitals/I&O/Wt Last Vital Signs Temp 98.6 F 09/18/22 15:51 Pulse 88 09/18/22 15:51 Resp 18 09/18/22 17:08 BP 108/84 09/18/22 18:40 Pulse Ox 98 09/18/22 18:40 O2 Del Method 09/18/22 15:51 Weight last 48 hrs Weight 153.314 kg Physical Exam Narrative: Patient currently in the OR unable to be examined, will attempt at a later time. Urinary Catheter Management: Mckeon: Cath Placed During This Visit: yes Urinary Catheter Date of Insertion: 09/18/22 Urinary Catheter Time of Insertion: 19:00 Data 09/18/22 16:55 09/18/22 16:55 Micro: Microbiology 09/18/22 16:55 Blood Culture - Preliminary Blood SPECIMEN COLLECTED 09/18/22 16:58 Blood Culture - Preliminary Blood SPECIMEN COLLECTED A&P Assessment and plan (1) Epididymal abscess: (2) Swelling of right half of scrotum: Plan Patient presenting today with worsening swelling over the scrotum, suspected to have scrotal abscess, taken to the OR for urgent surgical exploration. Failure of outpatient antibiotics including cefdinir levofloxacin. Empiric antibiotic coverage currently with piperacillin tazobactam and vancomycin. Lactate elevated, high white blood cell count, may be septic. Fluid bolus given in the ER. Blood culture taken prior to initiation of antibiotics. IV fluid normal saline at 75 cc an hour Continue home doses of allopurinol statins. Insulin sliding scale for diabetic management while inpatient. Will attempt to see patient once he is out of the OR. 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
--- NOTE | 2022-09-18 19:27 | PC.NURSE ---
attempted report, no one available. Pt now in surgery.
--- NOTE | 2022-09-18 19:38 | ANES.PREANE2 ---
Pre-Anesthetic Assessment Height/Weight: Height 1.83 m Weight 153.314 kg Temp Pulse Resp BP Pulse Ox O2 Del Method 98.6 F 96 16 146/87 94 09/18/22 15:51 09/18/22 19:28 09/18/22 19:28 09/18/22 19:28 09/18/22 19:28 09/18/22 15:51 Operation Date: 09/18/22 19:40 Proposed Procedures p Scrotal Exploration(Not Applicable) - Adam Garnica MD s Incision And Drainage(Not Applicable) - Adam Garnica MD Familial anesthetic complications: None Was Beta Griffin taken within 24 hours: N/A Was Clonidine taken within 24 hours: N/A Last intake: > 8hrs Social No alcohol and No tobacco Exam alert, oriented x 3, clear to auscultation bilaterally and regular rate & rhythm Airway Mallampati: Class IV Dentition: other (multiple missing) Comments: Comments: Full gomes Pulmonary Sleep Apnea CV/HEM Hypertension GI Gastroesophageal Reflux Disease Metabolic Diabetes Mellitus, Hyperlipidemia, Morbid Obesity and Thyroid Disease Anesthetic Plan ASA status: 3 Anesthesia: General Risk of > 500 ml blood loss (7ml/kg in children): No Medications/Allergies Home Medications Medication Instructions Recorded Confirmed Last Taken Type allopurinol 300 mg tablet 300 mg PO DAILY 09/06/20 09/18/22 09/18/22 History diclofenac sodium 75 mg 75 mg PO Q12H PRN pain #20 tabs 09/16/22 09/18/22 09/18/22 Rx tablet,delayed release tramadol 100 mg tablet 100 mg PO Q6H PRN pain #30 tabs 09/16/22 09/18/22 Unknown Rx albuterol sulfate 90 mcg/actuation 2 puff inhalation Q6H PRN 09/18/22 09/18/22 Unknown History aerosol inhaler (ProAir HFA) Shortness Of Breath Or Wheezing atorvastatin 40 mg tablet 40 mg PO DAILY 09/18/22 09/18/22 09/18/22 History cefdinir 300 mg capsule 300 mg PO Q12H 09/18/22 09/18/22 09/18/22 History dulaglutide 1.5 mg/0.5 mL 1.5 mg SUBCUT Q7D 09/18/22 09/18/22 09/13/22 History subcutaneous pen injector (Trulicity) glipizide 10 mg tablet, extended 10 mg PO BID 09/18/22 09/18/22 09/18/22 History release 24 hr levofloxacin 500 mg tablet 500 mg PO DAILY 09/18/22 09/18/22 09/18/22 History levothyroxine 50 mcg tablet 50 mcg PO DAILY 09/18/22 09/18/22 09/18/22 History lisinopril 30 mg tablet 30 mg PO DAILY 09/18/22 09/18/22 09/18/22 History metformin 500 mg tablet,extended 1,000 mg PO BID 09/18/22 09/18/22 09/18/22 History release 24 hr pantoprazole 40 mg tablet,delayed 40 mg PO DAILY 09/18/22 09/18/22 09/18/22 History release zinc acetate 50 mg (zinc) capsule 50 mg PO DAILY 09/18/22 09/18/22 09/18/22 History Allergies Allergy/AdvReac Type Severity Reaction Status Date / Time No Known Allergies Allergy Verified 09/18/22 17:14 Current Medications Generic Name Dose Route Start Last Admin Trade Name Freq PRN Reason Stop Dose Admin Vancomycin HCl 2,000 mg/ 500 mls @ 250 mls/hr 09/18/22 17:40 09/18/22 18:36 Sodium Chloride IV 09/18/22 19:39 250 mls/hr ONCE ONE Administration Protocol [facility] Anesthesia Medical History Epididymal abscess GERD (gastroesophageal reflux disease) Hyperlipidemia Hypertension Hypothyroidism Morbid obesity Swelling of right half of scrotum Type 2 diabetes mellitus Social History Smoking and tobacco status: never smoked Data Anesthesia 09/18/22 16:55 09/18/22 16:55 Short CBC 09/18/22 Range/Units 16:55 WBC 16.7 H (4.0-10.0) 10^3/uL Hgb 14.2 (11.7-16.6) g/dL Hct 42.4 (42.0-52.0) % MCV 95.7 H (80-94) fl Plt Count 322 (130-400) 10^3/cmm Neut % (Auto) 78.6 % Neut # (Auto) 13.11 H (1.8-7.7) 10^3/uL BMP 09/18/22 16:55 Sodium 134 L Potassium 4.6 Chloride 99 Carbon Dioxide 17 L BUN 15 Creatinine 1.2 Glucose 144 H Calcium 9.0 Liver Function 09/18/22 Range/Units 16:55 Total Bilirubin 0.4 (0.15-1.2) mg/dL AST 68 H (0-40) U/L ALT 72 H (0-41) U/L Alkaline Phosphatase 133 H (40-130) U/L Albumin 3.6 (3.5-5.2) g/dL Urine 09/18/22 Range/Units 19:01 Urine Color Yellow (Yellow) Urine Appearance Clear (CLEAR) Urine pH 5 (5-7) Ur Specific [place] 1.000 L (1.005-1.030) Urine Protein 1+ H (Negative) Urine Glucose (UA) Norm (Normal) Urine Ketones Negative (Negative) Urine Nitrate Negative (Negative) Urine Bilirubin Neg (Negative) Ur Leukocyte Esterase Trace H (Negative) Urine RBC None (0-2) /hpf Urine WBC 0-4 H (0-5) /hpf Coags 09/18/22 09/18/22 16:55 16:55 ESR 117 H C-Reactive Protein 202.7 H Microbiology 09/18/22 16:55 Blood Culture - Preliminary Blood SPECIMEN COLLECTED 09/18/22 16:58 Blood Culture - Preliminary Blood SPECIMEN COLLECTED Cardiac Studies: No Data to Display
--- NOTE | 2022-09-18 21:36 | P.OP_ITS ---
Operative Report Date of procedure: September 18, 2022 Pre-op diagnosis: Epididymal abscess possible testicular loss Post-op diagnosis: Same Procedure done: 1. Scrotal exploration, drainage of epididymal abscess 2. Right scrotal orchiectomy Specimens removed/disposition: 1. Wound cultures 2. Right testicle and partial spermatic cord Pathology: Same Surgeon: Danika Estimated blood loss: <50 cc Urine output: Not measured Complications: None Findings: Anesthesia: General Condition: Stable Disposition: PACU Intraoperative findings: * It did not appear that the source was in fact an epididymal abscess. * Testicle showed multiple areas of partial necrosis. Brief History: Mr. Menendez is a 61-year-old white male who I evaluated for the first time toda y in the urgency department for grossly abnormal right hemiscrotum and dramatic change in his ultrasound appearance of the scrotum showing initially normal- appearing testicle with epididymis on 09/05/2022 and what appeared to be a abscess within the tunica vaginalis and possible liquefaction necrosis of the right testicle. It was recommended he undergo scrotal exploration possible right orchiectomy. Procedure: After urgent evaluation examination and obtaining of informed consent he was taken to the operating suite on 09/18/2022 where general anesthesia was administered without difficulty after appropriate timeout was performed, SCDs confirmed to be functioning, preoperative antibiotics administered, beta-tess protocol confirmed. Prepped and draped in usual sterile fashion in dorsolithotomy position paying careful attention to voiding pressure points. A right hemiscrotal incision was made in the skin crease and taken down through the skin onto the tunica vaginalis which was somewhat dusky and thickened in appearance. The tunica vaginalis was opened and there was purulent fluid within the space and also a lot of milky fluid as well. The testicle showed some areas of pink but other areas of what appear to be ischemic necrosis. The cord was very thickened. The tunica vaginalis was then dissected from the surrounding tissue and the cord was identified and developed with blunt and sharp dissection. The cremasteric muscle fibers were divided. Cord was taken into packages first with the vas deferens and surrounding vasculature divided and ligated. And then the cord was doubly clamped and divided and the testicle and partial spermatic cord sent for pathologic evaluation. The stump of the spermatic cord had a dusky necrotic look to it. The cord was then triply ligated with 2 heavy ties and the stick tie. Hemostasis was confirmed to be meticulous. The wound was irrigated then with a Pulsavac device with saline and antibiotic. Hemostasis was confirmed. Because the abscess appeared to be for the most part contained within the tunica vaginalis it was decided to partially close the wound. Some of the deep scrotal wall was approximated loosely. A single 4 x 4 was packed into the central portion of the wound and loose abutment of the scrotal wall was performed medially and laterally to that. 2 horizontal mattress sutures of 2-0 nylon were utilized for loose approximation of the skin. Quarter inch Nu Gauze was packed in between the areas lateral and medial to the skin sutures. Fluffed dressings and ABD pad were applied externally. And maternity briefs were also applied. Mckeon catheter was placed. He tolerated procedure well without complications. Awakened in the operating room and returned to the recovery room in stable condition. He will be transferred to the [facility].
--- NOTE | 2022-09-18 21:46 | SUR.PHASEI ---
213 PT TO PACU 5 AWAKE ALERT TALKATIVE, ORIENTED X 3 MONIOTR SR NO ECTOPY, GOOD RESP EFFORT, PT BELCHING LOUDLY SEVERAL TIMES, PT VERBALLY DENIES NAUSEA AND PAIN, DRESSING TO SCROTAL AREA D/I WILSON WTIH STATLOCK TO LT INNER THIGH, YELLOW URINE, TO TUBING AND BAG, IV TO LT HAND #20 WITH NS 250 UP AT KVO RATE. ID BAND TO LT WRIST, PT ID'D WITH 2 IDENTIFERS. 2148 PT TAKING ICE CHIPS C/O OF PAIN OF 9 SEE PAIN MED GIVEN
[2022-09-18] MEDS: fentaNYL 50 mcg/mL INJ 2mL IVP (21:51)
[2022-09-18] MEDS: HYDROmorphone 1 mg/mL INJ 1 mL 0.5 MG IVP (22:00)
--- NOTE | 2022-09-18 22:05 | SUR.PHASEI ---
2154 TIMOTHY TIM AT BEDSIDE SEE EARLY PAIN MED GIVEN, ORDERS RECIEVED TO USE DILAUDID NOW FOR PAIN STARTING WITH 0.5MG PER PROTOCOL FOR PHASE 1 RECOVERY, MONITOR UNCHANGED DRESSING D/I WITH STRETCH BRIEFS IN PLACE, 2204 PT MORE RELAXED TALKATIVE STATES PAIN IS GETTING BETTER, PT TAKING OCC ICE CHIPS VSS DRESSING UNCHANGED ,
--- NOTE | 2022-09-18 22:19 | SUR.PHASEI ---
PT AWAKE ALERT TAKING ICE CHPS VSS DRESSING D/I WILSON PATENT OF YELLOW URINE, REPORT CALLED TO FLOOR.
--- NOTE | 2022-09-18 22:44 | SUR.PHASEI ---
PT TO 259 BED 2 PER CART, PT MOVED WITH AIR TRANSPORT PAD PT AWAKE ALERT DRESSING D/I HANDOFF AT BEDSIDE PT ROLLED TO LT SIDE FOR COMFORT HOB AT 10 DEGREES. PT REQUESTS TO CALL HIS DAUGHTER, NURSE ASSISTING PT WITH THIS. VSS. NO DISTRESS NOTED WILSON PATENT OF YELLOW URINE TO TUBING AND BAG. NOT EMPTIED IN PACU . WILSON PLACED AT THE END OF OR CASE.
[2022-09-18 22:54] LABS: Glucose Point of Care 155 mg/dL (70-110)
[2022-09-18] MEDS: sodium chloride 0.9% 1,000 ML 75 ML IV (22:54)
[2022-09-19] VITALS (10 sets, daily range): BP systolic 123–144; BP diastolic 66–87; PULSE 62–89; RESP 18–22; TEMP 36.7–36.8; O2SAT 22–99; BMI 45.8
[2022-09-19] MEDS: TRAMadol 50 mg Tablet 100 MG PO ×3 (00:03→17:34)
[2022-09-19] MEDS: piperacillin-tazobactam 3.375 GM in sodium chloride 0.9% (plus) 50 ML IV ×3 (01:54→17:35)
[2022-09-19 04:56] LABS: Basophils # 0.1 10^3/uL (0.0-0.1); Basophils % 0.4 %; Eosinophils # 0.1 10^3/uL (0.0-0.8); Eosinophils % 0.6 %; Hematocrit 37.6 % (42.0-52.0); Hemoglobin 12.3 g/dL (11.7-16.6); Lymphocytes # 1.5 10^3/uL (0.8-4.8); Lymphocytes % 13.2 %; Mean Corpuscular HGB Conc 32.7 g/dL (30.0-36.0); Mean Corpuscular Volume 97.9 fl (80-94); Mean Platelet Volume 9.4 fL (7.4-10.4); Monocytes # 0.6 10^3/uL (0.2-0.9); Monocytes % 5.2 %; Neutrophils # 8.91 10^3/uL (1.8-7.7); Neutrophils % 79.4 %; Nucleated Red Blood Cells % 0 %; Platelet Count 267 10^3/cmm (130-400); Red Blood Count 3.84 10^6/uL (4.1-5.3); Red Cell Distribution Width 12.8 % (12.1-15.1); White Blood Count 11.3 10^3/uL (4.0-10.0)
[2022-09-19 05:21] LABS: Lactate (Lactic Acid level) 0.9 mmol/L (0.5-2.2)
[2022-09-19 05:24] LABS: Alanine Aminotransferase 51 U/L (0-41); Albumin Level 2.9 g/dL (3.5-5.2); Alkaline Phosphatase 106 U/L (40-130); Anion Gap 15.4 (5-19); Aspartate Amino Transferase 34 U/L (0-40); Blood Urea Nitrogen 12 mg/dL (8-23); Carbon Dioxide 22 mmol/L (22-29); Chloride 104 mmol/L (98-107); Globulin 3.7 g/dL (1.3-4.6); Glucose 169 mg/dL (65-115); Osmolality Calculated 288 mOsm/kg (285-295); Potassium 4.4 mmol/L (3.5-5.1); Sodium 137 mmol/L (136-145); Total Bilirubin 0.3 mg/dL (0.15-1.2); Total Protein 6.6 g/dL (6.6-8.7)
[2022-09-19] MEDS: vancomycin 1,500 MG/300 ML PIGGYBACK 200 MG IV ×2 (06:01→20:18)
[2022-09-19 06:42] LABS: Glucose Point of Care 136 mg/dL (70-110)
[2022-09-19] MEDS: pantoprazole DR 40 mg Tablet PO (09:28)
[2022-09-19] MEDS: lisinopril 10 mg Tablet 30 MG PO (09:28)
[2022-09-19] MEDS: atorvastatin 40 mg Tablet PO (09:29)
[2022-09-19] MEDS: levothyroxine 50 mcg Tablet PO (09:29)
[2022-09-19] MEDS: allopurinol 300 mg Tablet PO (09:29)
--- NOTE | 2022-09-19 10:47 | PC.CHAP ---
Pastoral Care Encounter/Spiritual Assessment Type of Contact [] Declined security consultant visit [] Patient/Family/Request visit [] Outpatient visit [] Follow-up visit [] Physician referral [] Code/Alert [x] Routine visit [] Staff referral [] Actively dying [] Patient sleeping [] Family support [] [] Out of room [] Palliative care [] [x] Receiving care in room [] Pre-surgical visit [] Trauma [] Long length of stay [] ICU visit [] Other: Relational/Emotional Strength [x] Patient feels connected with others/family/visitors/staff [] Distress [] Loneliness/isolation [] Abandonment Spirituality of Patient [] Person of Alexia [] Attends Hindu of their Alexia [] Believes in Prayer [] Reads Bible or Mandaeism materials [] There are Spiritual issues to be addressed Telecommunications Linesworker Interventions [] Prayer [] Active listening [] Non-anxious presence [] Spiritual/emotional support [] Crisis/trauma care [] Spiritual counseling [] Bereavement support [] Provided bereavement packet [] Provided Bible/devotional materials [] Provided toy/stuffed animal, coloring book to patient or family member [] Provided Communion [] Anointing/[place] [] Salvation [] Completed spiritual assessment [] Other: Impact on Illness or Injury [] Angry [] Fearful [x] Anxious [] Often cries [] Exhaustion [] Unable to work [] Unable to attend catholic [] Unable to walk/stand [] Unable to read [] Unable to drive [] Unable to eat/drink [] Unable to sleep [] Unable to be with family [] Patient intubated [] Other: Summary had surgery has a good attitude well go home Time spent with patient 10 mins
[2022-09-19 11:49] LABS: Glucose Point of Care 171 mg/dL (70-110)
[2022-09-19] MEDS: morphine 4 mg/mL SDV 1 mL 2 MG IVP ×2 (14:32→18:15)
--- NOTE | 2022-09-19 15:40 | P.PN_ITS ---
Subjective Subjective: Status post right orchiectomy yesterday. Currently states pain is under control. Has questions about dressing changes which have been deferred to surgery. Hesitant about using insulin, explained the rationale of not using oral hypoglycemics while in the hospital and using insulin instead. Afebrile and hemodynamically stable Medications: Reviewed: Yes Vitals/I&O/Wt Last Vital Signs Temp 98.2 F 09/19/22 11:51 Pulse 62 09/19/22 11:51 Resp 18 09/19/22 14:32 BP 128/71 09/19/22 11:51 Pulse Ox 98 09/19/22 11:51 O2 Del Method 09/19/22 11:51 O2 Flow Rate 2 09/19/22 11:51 09/19/22 09/19/22 09/19/22 06:59 14:59 22:59 Intake Total 50 / 3628 1830 / 1830 Output Total 2500 / 2500 Balance 50 / 3618 -670 / -670 Weight last 48 hrs Weight 153.314 kg Weight 153.314 kg Physical Exam Narrative: General: No acute distress, AO x3 HEENT: PERRLA, pupils bilaterally equal and reactive, pallors not present Chest: Normal vesicular breath sounds, no added sounds, equal good air entry bilaterally CVS: S1-S2 regular, no murmurs, no tachycardia, no gallops, no rubs Abdomen: Soft, nontender, no organomegaly, bowel sounds present Neuro: No focal deficits, no facial deformity, AO x3, power 5/5 in all limbs Extremities: No edema clubbing or cyanosis, surgical dressing not open for exam Urinary Catheter Management: Mckeon: Cath Placed During This Visit: yes, but has since been removed by the nurse Reason for Continuing Indwelling Catheter: Acute Urinary Retention or Obstruction Urinary Catheter Date of Insertion: 09/18/22 Urinary Catheter Time of Insertion: 21:23 Date Urinary Catheter Removed: 09/18/22 Time Urinary Catheter Discontinued: 20:10 Data 09/19/22 03:38 09/19/22 03:38 Micro: Microbiology 09/18/22 20:35 Gram Stain - Final Scrotum 09/18/22 16:55 Blood Culture - Preliminary Blood SPECIMEN COLLECTED 09/18/22 16:58 Blood Culture - Preliminary Blood SPECIMEN COLLECTED A&P Assessment and plan (1) Epididymal abscess: (2) Swelling of right half of scrotum: Plan Patient presenting with worsening swelling over the scrotum, suspected to have scrotal abscess, taken to the OR for urgent surgical exploration. Status post drainage of epididymal abscess and right scrotal orchiectomy. Wound culture is pending. Failure of outpatient antibiotics including cefdinir levofloxacin. Empiric antibiotic coverage currently with piperacillin tazobactam and vancomycin. IV fluid normal saline at 75 cc an hour Continue home doses of allopurinol statins. Insulin sliding scale for diabetic management while inpatient. Attestations Medical Necessity Statement*: Per attending Coding Level of Care Code Acute Fertilizer Applicator for Melly Horton Diagnoses Epididymal abscess N45.4 Swelling of right half of scrotum N50.89
[2022-09-19 16:59] LABS: Glucose Point of Care 166 mg/dL (70-110)
--- NOTE | 2022-09-19 18:50 | P.PN_ITS ---
Subjective Subjective: Postop day #1 drainage of scrotal abscess as well as right orchiectomy. Feeling much better. Some soreness but not bad. No fever or chills. Wound inspected and looks healthy. Dressing changed. Reviewed plans with the patient and family. Culture still pending. Medications: Reviewed: Yes Vitals/I&O/Wt Last Vital Signs Temp 98.0 F 09/19/22 15:50 Pulse 68 09/19/22 15:50 Resp 20 H 09/19/22 18:15 BP 123/70 09/19/22 15:50 Pulse Ox 99 09/19/22 15:50 O2 Del Method 09/19/22 15:50 O2 Flow Rate 2 09/19/22 15:50 09/19/22 09/19/22 09/19/22 06:59 14:59 22:59 Intake Total 50 / 3628 1830 / 1830 50 / 1880 Output Total 2500 / 2500 2100 / 4600 Balance 50 / 3618 -670 / -670 -2050 / -2720 Weight last 48 hrs Weight 338 lb Weight 338 lb Physical Exam Const: COMMON NORMALS: alert and well nourished GENERAL APPEARANCE: well kempt and well developed ORIENTATION/CONSCIOUSNESS: not confused Resp: COMMON NORMALS: normal respiratory effort EFFORT & INSPECTION: Yes able to speak in complete sentences, No labored and No Actively coughing OTHER: No audible wheezes Cardio: COMMON NORMALS: regular rate RATE: regular rate GI: OTHER: Truncal obesity. No masses felt. No significant tenderness. No skin crepitus. : OTHER: Marked reduction in scrotal swelling. Wound looks healthy. Dressing was changed. No foul drainage. Skin edges look healthy as well. No evidence of accumulation of fluid. Neuro: COMMON NORMALS: no focal motor deficits SENSORIUM/ORIENTATION: Yes alert Psych: COMMON NORMALS: mental status grossly normal APPEARANCE: Yes grossly normal and Yes well kempt ATTITUDE: Yes calm and Yes engaged Urinary Catheter Management: Mckeon: Cath Placed During This Visit: yes, but has since been removed by the nurse Reason for Continuing Indwelling Catheter: Required Immobilization for Trauma or Surgery or Anesthesia Urinary Catheter Date of Insertion: 09/18/22 Urinary Catheter Time of Insertion: 21:23 Date Urinary Catheter Removed: 09/18/22 Time Urinary Catheter Discontinued: 20:10 Data 09/19/22 03:38 09/19/22 03:38 Micro: Microbiology 09/18/22 16:58 Blood Culture - Preliminary Blood NEGATIVE TO DATE 09/18/22 16:55 Blood Culture - Preliminary Blood NEGATIVE TO DATE 09/18/22 20:35 Gram Stain - Final Scrotum A&P Assessment and plan (1) Epididymal abscess: Status post drainage of epididymal abscess and right orchiectomy scrotal approach. Partial closure of the wound. (2) Morbid obesity: Plan Continue IV antibiotics and dressing changes. Attestations Medical Necessity Statement*: IV antibiotics post scrotal exploration Coding Level of Care Code Acute Automobile Leasing Supervisor for [facility] Fwd Diagnoses Epididymal abscess N45.4 Morbid obesity E66.01
[2022-09-19] MEDS: sodium chloride 0.9% 1,000 ML 75 ML IV (20:19)
[2022-09-19 20:58] LABS: Glucose Point of Care 227 mg/dL (70-110)
[2022-09-19] MEDS: insulin lispro 100 unit/1 mL SUBCUT (21:28)
[2022-09-20] VITALS (10 sets, daily range): BP systolic 138–158; BP diastolic 84–107; PULSE 63–102; RESP 18–24; TEMP 36.4–36.8; O2SAT 92–96
[2022-09-20] MEDS: piperacillin-tazobactam 3.375 GM in sodium chloride 0.9% (plus) 50 ML IV ×3 (00:28→17:05)
[2022-09-20] MEDS: polyethylene glycol 3350 Pkt 17 gm PO (01:31)
[2022-09-20] MEDS: sennosides-docusate Tablet 1 TAB PO (01:48)
[2022-09-20] MEDS: lidocaine 2% viscous 15 ML, aluminum-mag hydrox-simethicon 30 ML, sucralfate oral liq 1 GM PO (01:49)
[2022-09-20] MEDS: TRAMadol 50 mg Tablet 100 MG PO ×2 (06:27→14:16)
[2022-09-20 06:41] LABS: Glucose Point of Care 196 mg/dL (70-110)
[2022-09-20] MEDS: insulin lispro 100 unit/1 mL SUBCUT ×4 (08:18→21:56)
[2022-09-20] MEDS: vancomycin 1,500 MG/300 ML PIGGYBACK 200 MG IV ×2 (08:18→21:55)
[2022-09-20] MEDS: allopurinol 300 mg Tablet PO (08:19)
[2022-09-20] MEDS: atorvastatin 40 mg Tablet PO (08:19)
[2022-09-20] MEDS: pantoprazole DR 40 mg Tablet PO (08:19)
[2022-09-20] MEDS: lisinopril 10 mg Tablet 30 MG PO (08:19)
[2022-09-20] MEDS: levothyroxine 50 mcg Tablet PO (08:19)
[2022-09-20] MEDS: morphine 4 mg/mL SDV 1 mL 2 MG IVP ×3 (10:08→21:17)
[2022-09-20] MEDS: sodium chloride 0.9% 1,000 ML 75 ML IV (12:27)
[2022-09-20 15:28] LABS: Glucose Point of Care 173 mg/dL (70-110)
--- NOTE | 2022-09-20 15:52 | PM.PN ---
Subjective Subjective: Urology follow-up: Postop day #2, drainage is epididymal abscess and right orchiectomy with partial wound closure He is doing well. Overall feels better. Ambulated today without difficulty. Dressing change: Scrotal tissues look healthy. Dressing had some serosanguineous staining but no purulence no foul odor. No evidence of progressive infection locally. Replaced wicking dressing internally. Mckeon catheter order to be discharged. And out cath as needed. Continue wound care and antibiotics. We will plan on training his family for wound care once he is ready for discharge. Tentatively look at Friday if continues to do well Vitals/I&O/Wt Last Vital Signs Temp 97.9 F 09/20/22 15:28 Pulse 100 09/20/22 15:28 Resp 18 09/20/22 15:28 BP 145/90 09/20/22 15:28 Pulse Ox 93 09/20/22 15:28 O2 Del Method 09/20/22 15:28 O2 Flow Rate 2 09/19/22 15:50 09/20/22 09/20/22 09/20/22 06:59 14:59 22:59 Intake Total 50 / 2470 2069 Output Total 1650 / 6250 Balance -1600 / -3780 2069 Weight last 48 hrs Weight 338 lb Physical Exam Const: COMMON NORMALS: alert and well nourished GENERAL APPEARANCE: well developed ORIENTATION/CONSCIOUSNESS: not confused Resp: COMMON NORMALS: normal respiratory effort EFFORT & INSPECTION: Yes able to speak in complete sentences, No labored and No Actively coughing OTHER: No audible wheezes Cardio: COMMON NORMALS: regular rate RATE: regular rate : OTHER: Healthy appearing skin edges. No purulence. Dressing shows some serosanguineous fluid. Repacked. Lesser volume. Coming along nicely. Neuro: SENSORIUM/ORIENTATION: Yes alert Psych: COMMON NORMALS: mental status grossly normal ATTITUDE: Yes calm and Yes engaged Urinary Catheter Management: Mckeon: Cath Placed During This Visit: yes, but has since been removed by the nurse Reason for Continuing Indwelling Catheter: Required Immobilization for Trauma or Surgery or Anesthesia Urinary Catheter Date of Insertion: 09/18/22 Urinary Catheter Time of Insertion: 21:23 Date Urinary Catheter Removed: 09/18/22 Time Urinary Catheter Discontinued: 20:10 Data 09/19/22 03:38 09/19/22 03:38 Micro: Microbiology 09/18/22 16:58 Blood Culture - Preliminary Blood NEGATIVE TO DATE 09/18/22 16:55 Blood Culture - Preliminary Blood NEGATIVE TO DATE 09/18/22 20:35 Gram Stain - Final Scrotum Attestations Medical Necessity Statement*: IV antibiotics wound care. Anticipate discharge later this weekend or early next week if no evidence of progression of infectious concerns Coding Level of Care Code Acute Python Web Developer for Melly Horton
--- NOTE | 2022-09-20 16:18 | PM.PN ---
Subjective Subjective: No acute interim events. Culture is still pending. Patient wants was Trulicity in addition to insulin. Have tried to risk reduction counselor him that insulin for now will suffice, however he insists on taking his Trulicity as well. Medications: Reviewed: Yes Vitals/I&O/Wt Last Vital Signs Temp 97.9 F 09/20/22 15:28 Pulse 100 09/20/22 15:28 Resp 18 09/20/22 15:28 BP 145/90 09/20/22 15:28 Pulse Ox 93 09/20/22 15:28 O2 Del Method 09/20/22 15:28 O2 Flow Rate 2 09/19/22 15:50 09/20/22 09/20/22 09/20/22 06:59 14:59 22:59 Intake Total 50 / 2470 2069 Output Total 1650 / 6250 Balance -1600 / -3780 2069 Weight last 48 hrs Weight 153.314 kg Physical Exam Narrative: General: No acute distress, AO x3 HEENT: PERRLA, pupils bilaterally equal and reactive, pallors not present Chest: Normal vesicular breath sounds, no added sounds, equal good air entry bilaterally CVS: S1-S2 regular, no murmurs, no tachycardia, no gallops, no rubs Abdomen: Soft, nontender, no organomegaly, bowel sounds present Neuro: No focal deficits, no facial deformity, AO x3, power 5/5 in all limbs Extremities: No edema clubbing or cyanosis, surgical dressing not open for exam Urinary Catheter Management: Mckeon: Cath Placed During This Visit: yes, but has since been removed by the nurse Reason for Continuing Indwelling Catheter: Required Immobilization for Trauma or Surgery or Anesthesia Urinary Catheter Date of Insertion: 09/18/22 Urinary Catheter Time of Insertion: 21:23 Date Urinary Catheter Removed: 09/18/22 Time Urinary Catheter Discontinued: 20:10 Data 09/19/22 03:38 09/19/22 03:38 Micro: Microbiology 09/18/22 16:58 Blood Culture - Preliminary Blood NEGATIVE TO DATE 09/18/22 16:55 Blood Culture - Preliminary Blood NEGATIVE TO DATE 09/18/22 20:35 Gram Stain - Final Scrotum A&P Assessment and plan (1) Epididymal abscess: (2) Swelling of right half of scrotum: Plan Patient presenting with worsening swelling over the scrotum, suspected to have scrotal abscess, taken to the OR for urgent surgical exploration. Status post drainage of epididymal abscess and right scrotal orchiectomy. Wound culture is pending. Failure of outpatient antibiotics including cefdinir levofloxacin. Empiric antibiotic coverage currently with piperacillin tazobactam and vancomycin. d/c IVF Continue home doses of allopurinol statins. Moderate Insulin sliding scale for diabetic management while inpatient, FS well controlled Insists on taking weekly trulicity, would be okay for today alongside insulin Attestations Medical Necessity Statement*: per admitting , awaiting cx results Coding Level of Care Code Acute College Scouting Coordinator for [facility] Fwd Diagnoses Epididymal abscess N45.4 Swelling of right half of scrotum N50.89
[2022-09-20 16:49] LABS: Glucose Point of Care 256 mg/dL (70-110)
[2022-09-20 21:27] LABS: Vancomycin Trough 10.2 ug/mL (10-15)
[2022-09-20 21:37] LABS: Glucose Point of Care 258 mg/dL (70-110)
[2022-09-21] VITALS (12 sets, daily range): BP systolic 115–160; BP diastolic 83–101; PULSE 52–105; RESP 16–28; TEMP 36.5–36.7; O2SAT 91–98
[2022-09-21] MEDS: sodium chloride 0.9% 1,000 ML 75 ML IV (02:17)
[2022-09-21] MEDS: piperacillin-tazobactam 3.375 GM in sodium chloride 0.9% (plus) 50 ML IV ×3 (02:17→21:23)
[2022-09-21] MEDS: morphine 4 mg/mL SDV 1 mL 2 MG IVP ×3 (05:13→21:59)
[2022-09-21 06:50] LABS: Glucose Point of Care 192 mg/dL (70-110)
[2022-09-21] MEDS: atorvastatin 40 mg Tablet PO (08:33)
[2022-09-21] MEDS: pantoprazole DR 40 mg Tablet PO (08:33)
[2022-09-21] MEDS: lisinopril 10 mg Tablet 30 MG PO (08:33)
[2022-09-21] MEDS: levothyroxine 50 mcg Tablet PO (08:33)
[2022-09-21] MEDS: allopurinol 300 mg Tablet PO (08:33)
[2022-09-21] MEDS: insulin lispro 100 unit/1 mL SUBCUT ×4 (08:41→21:47)
[2022-09-21] MEDS: vancomycin 1,500 MG/300 ML PIGGYBACK 200 MG IV ×2 (10:18→22:53)
[2022-09-21 11:45] LABS: Glucose Point of Care 221 mg/dL (70-110)
--- NOTE | 2022-09-21 12:19 | P.PN_ITS ---
Subjective Subjective: seen this am no acute events overnight pt says his pain is controlled but at times it hurts a lot. he says he will be going home friday as per Dr. breaux. Vitals/I&O/Wt Last Vital Signs Temp 98.1 F 09/21/22 11:55 Pulse 76 09/21/22 11:55 Resp 16 09/21/22 11:55 BP 143/91 09/21/22 11:55 Pulse Ox 91 09/21/22 11:55 O2 Del Method 09/21/22 08:00 O2 Flow Rate 2 09/20/22 20:00 09/20/22 09/21/22 09/21/22 22:59 06:59 14:59 Intake Total 990 / 3060 1822.917 / 4882.917 240 / 240 Output Total 1900 / 1900 300 / 2200 225 / 225 Balance -910 / 1160 1522.917 / 2682.917 Physical Exam Narrative: General: No acute distress, AO x3, obese male laying in bed Chest: CTA b/l, no wheezes no ronchi CVS: S1-S2 regular, no murmurs, no tachycardia, no gallops, no rubs Abdomen: Soft, nontender, no organomegaly, bowel sounds present Neuro: No focal deficits, no facial deformity, AO x3, power 5/5 in all limbs Extremities: No edema clubbing or cyanosis, surgical dressing not open for exam Urinary Catheter Management: Mckeon: Cath Placed During This Visit: yes, but has since been removed by the nurse Reason for Continuing Indwelling Catheter: Required Immobilization for Trauma or Surgery or Anesthesia Urinary Catheter Date of Insertion: 09/18/22 Urinary Catheter Time of Insertion: 21:23 Date Urinary Catheter Removed: 09/18/22 Time Urinary Catheter Discontinued: 20:10 Data 09/19/22 03:38 09/19/22 03:38 Micro: Microbiology 09/18/22 20:35 Gram Stain - Final Scrotum Anaerobic Culture - Preliminary Wound Culture - Preliminary 09/19/22 16:20 MRSA Culture - Final Nose A&P Assessment and plan (1) Epididymal abscess: (2) Swelling of right half of scrotum: Plan Patient presenting with worsening swelling over the scrotum, suspected to have scrotal abscess, taken to the OR for urgent surgical exploration. Status post drainage of epididymal abscess and right scrotal orchiectomy. Wound culture is pending. Failure of outpatient antibiotics including cefdinir levofloxacin. Empiric antibiotic coverage currently with piperacillin tazobactam and vancomycin. Continue home doses of allopurinol statins. Moderate Insulin sliding scale for diabetic management while inpatient, FS well controlled Attestations Medical Necessity Statement*: awaiting culture results. per primary team. Coding Level of Care Code Acute Felt Cutting Machine Operator for [facility] Fwd Diagnoses Epididymal abscess N45.4 Swelling of right half of scrotum N50.89
--- NOTE | 2022-09-21 14:56 | PM.PN ---
Subjective Subjective: Urology follow-up: Postop day #3 Stable clinical course. No fever or chills. Pain is improving. Has been ambulatory. Has voided well since Mckeon catheter was removed. Decreased lower abdominal pain. No chest pain or shortness of breath Wound inspected. Dressing removed and it was dry with no evidence of purulence. No clear granulation tissue yet but there is no evidence of purulence or progressive infectious concerns. Will continue routine dressing changes. I expect that his clinical status will be improved well enough to be able to be discharged on Friday. He is plan on going back up to [facility] with his daughter and her family. Medications: Reviewed: Yes Vitals/I&O/Wt Last Vital Signs Temp 98.1 F 09/21/22 11:55 Pulse 76 09/21/22 11:55 Resp 16 09/21/22 11:55 BP 143/91 09/21/22 11:55 Pulse Ox 91 09/21/22 11:55 O2 Del Method 09/21/22 08:00 O2 Flow Rate 2 09/20/22 20:00 09/20/22 09/21/22 09/21/22 22:59 06:59 14:59 Intake Total 990 / 3060 1822.917 / 4882.917 740 / 740 Output Total 1900 / 1900 300 / 2200 225 / 225 Balance -910 / 1160 1522.917 / 2682.917 515 / 515 Physical Exam Const: COMMON NORMALS: no acute distress and patient oriented x3 Resp: OTHER: Unlabored. No audible wheezes. Good air movement GI: OTHER: Soft, nontender, no palpable masses. : OTHER: Uncircumcised phallus. Scrotum without erythema. Wound is darian as expected. Incision looks healthy. Dressing without foul or purulent drainage. Repacked loosely with 2 x 2 Neuro: COMMON NORMALS: patient oriented x3 Psych: COMMON NORMALS: mental status grossly normal, Normal thought process present, cooperative and speech normal SPEECH: Yes normal speech THOUGHT PROCESS: Normal thought process present Urinary Catheter Management: Mckeon: Cath Placed During This Visit: yes, but has since been removed by the nurse Reason for Continuing Indwelling Catheter: Required Immobilization for Trauma or Surgery or Anesthesia Urinary Catheter Date of Insertion: 09/18/22 Urinary Catheter Time of Insertion: 21:23 Date Urinary Catheter Removed: 09/18/22 Time Urinary Catheter Discontinued: 20:10 Data 09/19/22 03:38 09/19/22 03:38 Micro: Microbiology 09/18/22 20:35 Gram Stain - Final Scrotum Anaerobic Culture - Preliminary Wound Culture - Preliminary 09/19/22 16:20 MRSA Culture - Final Nose Attestations Medical Necessity Statement*: Recovering well from epididymal abscess status postorchiectomy. Still on IV antibiotics. Would look to discharge potentially on 09/23/2022 if acceptable from hospitalist perspective. Coding Level of Care Code Acute Press Manager for Melly Horton
[2022-09-21 17:28] LABS: Glucose Point of Care 228 mg/dL (70-110)
[2022-09-21 21:37] LABS: Glucose Point of Care 268 mg/dL (70-110)
[2022-09-22] VITALS (9 sets, daily range): BP systolic 100–153; BP diastolic 62–88; PULSE 77–106; RESP 16–19; TEMP 36.6–36.8; O2SAT 94–98
[2022-09-22] MEDS: lanolin oint 7 gm 1 APPLIC TOPICAL (00:08)
[2022-09-22] MEDS: morphine 4 mg/mL SDV 1 mL 2 MG IVP (05:11)
[2022-09-22] MEDS: piperacillin-tazobactam 3.375 GM in sodium chloride 0.9% (plus) 50 ML IV ×2 (05:12→12:07)
[2022-09-22 05:27] LABS: Basophils # 0.1 10^3/uL (0.0-0.1); Basophils % 1.1 %; Eosinophils # 0.4 10^3/uL (0.0-0.8); Eosinophils % 5.1 %; Hematocrit 43.1 % (42.0-52.0); Hemoglobin 13.8 g/dL (11.7-16.6); Lymphocytes # 1.8 10^3/uL (0.8-4.8); Lymphocytes % 23.9 %; Mean Corpuscular Hemoglobin 31.6 pg (28.0-34.0); Mean Corpuscular Volume 98.6 fl (80-94); Mean Platelet Volume 9.5 fL (7.4-10.4); Monocytes # 0.7 10^3/uL (0.2-0.9); Monocytes % 8.7 %; Neutrophils # 4.52 10^3/uL (1.8-7.7); Neutrophils % 59.6 %; Nucleated Red Blood Cells % 0 %; Platelet Count 326 10^3/cmm (130-400); Red Blood Count 4.37 10^6/uL (4.1-5.3); Red Cell Distribution Width 12.5 % (12.1-15.1); White Blood Count 7.6 10^3/uL (4.0-10.0)
[2022-09-22 06:13] LABS: Anion Gap 17.2 (5-19); Blood Urea Nitrogen 12 mg/dL (8-23); Calcium 9.6 mg/dL (8.5-10.5); Carbon Dioxide 25 mmol/L (22-29); Chloride 99 mmol/L (98-107); Glucose 172 mg/dL (65-115); Osmolality Calculated 288 mOsm/kg (285-295); Potassium 4.2 mmol/L (3.5-5.1); Sodium 137 mmol/L (136-145)
[2022-09-22 06:16] LABS: Glucose Point of Care 180 mg/dL (70-110)
--- NOTE | 2022-09-22 07:41 | P.PN_ITS ---
Subjective Subjective: Urology follow-up: Postop day #3 Doing well. More ambulatory. Decreased pain. No other complaints. Dressing changed today. Packing looks normal. No purulence. Wound is starting to close. I think he should be able to go home tomorrow. He is planning to go with his family to [facility]. When his daughter arrives tomorrow we will trend them on routine dressing changes. Recommendation will be for 2 x 2 loosely packed with less dressing packed over time and gauze dressings to cover the wound. Reviewed that he has 2 nondissolvable sutures that need to remain in place for about 2 weeks before removal either at his daughters with a local physician or here if he returns home by that time. Will be placed on SEPTRA DS based on the urine culture from 09/05/2022 Vitals/I&O/Wt Last Vital Signs Temp 97.8 F 09/22/22 05:42 Pulse 77 09/22/22 05:42 Resp 17 09/22/22 05:42 BP 100/66 09/22/22 05:42 Pulse Ox 95 09/22/22 05:42 O2 Del Method 09/21/22 20:00 O2 Flow Rate 2 09/20/22 20:00 09/21/22 09/22/22 09/22/22 22:59 06:59 14:59 Intake Total 820 / 2410 1230 / 3640 Output Total 280 / 505 Balance 820 / 2185 950 / 3135 Physical Exam Const: COMMON NORMALS: no acute distress and patient oriented x3 Neck/C-Spine: OTHER: Good range of motion Lymph: OTHER: No groin lymphadenopathy Resp: OTHER: Unlabored. No audible wheezes. Good air movement GI: OTHER: Soft, nontender, no palpable masses. : OTHER: Scrotum without erythema. Wound is darian as expected. Incision looks healthy. Packing is healthy looking. No purulent Repacked loosely with 2 x 2 Neuro: COMMON NORMALS: patient oriented x3 Psych: COMMON NORMALS: mental status grossly normal, Normal thought process present, cooperative and speech normal SPEECH: Yes normal speech THOUGHT PROCESS: Normal thought process present Urinary Catheter Management: Mckeon: Cath Placed During This Visit: yes, but has since been removed by the nurse Reason for Continuing Indwelling Catheter: Required Immobilization for Trauma or Surgery or Anesthesia Urinary Catheter Date of Insertion: 09/18/22 Urinary Catheter Time of Insertion: 21:23 Date Urinary Catheter Removed: 09/18/22 Time Urinary Catheter Discontinued: 20:10 Data 09/22/22 05:05 09/22/22 05:05 Micro: Microbiology 09/18/22 20:35 Gram Stain - Final Scrotum Anaerobic Culture - Preliminary Wound Culture - Preliminary A&P Assessment and plan (1) Epididymal abscess: Status post drainage as well as right orchiectomy for severely compromised right testicle. Plan Continued dressing changes with less packing. Cover with SEPTRA DS at discharge Anticipate discharge 09/23/2022. Attestations Medical Necessity Statement*: Should be ready for discharge tomorrow. Coding Level of Care Code Acute Component Prep Operator for Melly Horton Diagnoses Epididymal abscess N45.4
[2022-09-22] MEDS: allopurinol 300 mg Tablet PO (08:43)
[2022-09-22] MEDS: insulin lispro 100 unit/1 mL SUBCUT ×4 (08:43→21:54)
[2022-09-22] MEDS: lisinopril 10 mg Tablet 30 MG PO (08:43)
[2022-09-22] MEDS: pantoprazole DR 40 mg Tablet PO (08:43)
[2022-09-22] MEDS: atorvastatin 40 mg Tablet PO (08:43)
[2022-09-22] MEDS: levothyroxine 50 mcg Tablet PO (08:44)
[2022-09-22] MEDS: vancomycin 1,500 MG/300 ML PIGGYBACK 200 MG IV (09:39)
[2022-09-22 12:24] LABS: Glucose Point of Care 218 mg/dL (70-110)
--- NOTE | 2022-09-22 13:27 | P.PN_ITS ---
Subjective Subjective: No acute interim events. Mckeon has been discontinued, states pain is much better controlled. Plan to be discharged tomorrow. Medications: Reviewed: Yes Vitals/I&O/Wt Last Vital Signs Temp 98.2 F 09/22/22 11:51 Pulse 79 09/22/22 11:51 Resp 19 H 09/22/22 11:51 BP 128/85 09/22/22 11:51 Pulse Ox 96 09/22/22 11:51 O2 Del Method 09/22/22 08:00 O2 Flow Rate 2 09/20/22 20:00 09/21/22 09/22/22 09/22/22 22:59 06:59 14:59 Intake Total 820 / 2410 1230 / 3640 1160 / 1160 Output Total 280 / 505 Balance 820 / 2185 950 / 3135 1160 / 1160 Physical Exam Narrative: General: No acute distress, AO x3 HEENT: PERRLA, pupils bilaterally equal and reactive, pallors not present Chest: Normal vesicular breath sounds, no added sounds, equal good air entry bilaterally CVS: S1-S2 regular, no murmurs, no tachycardia, no gallops, no rubs Abdomen: Soft, nontender, no organomegaly, bowel sounds present Neuro: No focal deficits, no facial deformity, AO x3, power 5/5 in all limbs Extremities: No edema clubbing or cyanosis, surgical dressing not open for exam Urinary Catheter Management: Mckeon: Cath Placed During This Visit: yes, but has since been removed by the nurse Reason for Continuing Indwelling Catheter: Required Immobilization for Trauma or Surgery or Anesthesia Urinary Catheter Date of Insertion: 09/18/22 Urinary Catheter Time of Insertion: 21:23 Date Urinary Catheter Removed: 09/18/22 Time Urinary Catheter Discontinued: 20:10 Data 09/22/22 05:05 09/22/22 05:05 Micro: Microbiology 09/18/22 20:35 Gram Stain - Final Scrotum Anaerobic Culture - Preliminary Wound Culture - Final A&P Assessment and plan (1) Epididymal abscess: (2) Swelling of right half of scrotum: Plan Patient presenting with worsening swelling over the scrotum, suspected to have scrotal abscess, taken to the OR for urgent surgical exploration. Status post drainage of epididymal abscess and right scrotal orchiectomy. Wound culture with superficial skin paris- NO MRSA or resistant isoaltes identified per discussion with lab Planned to be discharged tomorrow with po bactrim. Will transition him to bactrim in the hospital today as he is concerned about potential for sulfa allergy. Will monitor with the change today. D/c Zosyn and vancomycin Continue home doses of allopurinol statins. Moderate Insulin sliding scale for diabetic management while inpatient, FS well controlled Attestations Medical Necessity Statement*: per admitting Coding Level of Care Code Acute House Superintendent for Melly Fwcarlos Diagnoses Epididymal abscess N45.4 Swelling of right half of scrotum N50.89
[2022-09-22] MEDS: sulfamethoxazole-trimeth DS 160-800 mg Tablet 1 TAB PO ×2 (14:33→17:19)
[2022-09-22 16:40] LABS: Glucose Point of Care 250 mg/dL (70-110)
[2022-09-22] MEDS: HYDROcodone-acetaminophen 5-325 mg Tablet 1 TAB PO (17:44)
[2022-09-22 21:20] LABS: Glucose Point of Care 268 mg/dL (70-110)
[2022-09-23 00:48] VITALS: BP 112/70; PULSE 75; RESP 24; TEMP 36.8; O2SAT 94
[2022-09-23] MEDS: HYDROcodone-acetaminophen 5-325 mg Tablet 1 TAB PO ×2 (02:49→08:52)
[2022-09-23 04:00] VITALS: BP 103/66; PULSE 68; RESP 24; TEMP 36.6; O2SAT 95
[2022-09-23 06:16] LABS: Glucose Point of Care 206 mg/dL (70-110)
[2022-09-23 07:52] LABS: Glucose Point of Care 184 mg/dL (70-110)
[2022-09-23 08:00] VITALS: BP 118/73; PULSE 76; RESP 18; TEMP 36.5; O2SAT 96
--- NOTE | 2022-09-23 08:28 | PM.DCS ---
Discharge Providers Date of Admission: 09/18/22 20:29 Date of Discharge: September 23, 2022 Attending Provider at Admission: Adam Garnica MD Attending Provider at Discharge: Adam Garnica MD Consults: Hospitalist for medical management Primary Care Provider: Ceasar St MD Diagnoses at Discharge Discharge Diagnosis (1) Epididymal abscess: Status: Resolved (2) Morbid obesity: Status: Acute (3) Hypothyroidism: Status: Acute (4) Hypertension: Status: Acute (5) GERD (gastroesophageal reflux disease): Status: Acute (6) Hyperlipidemia: Status: Acute (7) Type 2 diabetes mellitus: Status: Acute Reason for Visit Reason for Visit: testicle pain Hospital Course Hospital Course Direct admitted through the emergency department on 09/18/2022 with dramatic change in the appearance of his right hemiscrotum on ultrasound comparing it to 1 week prior. He had been on antibiotics with worsening of symptoms. Appeared septic. Taken emergently to the operating room where a large epididymal abscess was discovered and the testicle appeared to have multiple areas of necrosis. Drainage of epididymal abscess and right orchiectomy was performed. The wound was aggressively irrigated with a Pulsavac and then partially closed with packing. Postoperatively he did very well. Hospitalists were consulted for help with medical management. He was maintained on IV antibiotics. His wound was healing well at time of discharge with minimal packing required. He had 2 nonabsorbable skin sutures that will need to be removed and no sooner than 2 weeks postop. He will be traveling with his daughter and her to [facility] for convalescence. They were trained in how to manage the wound with dressing changes etc. prior to discharge. Based on the culture results he was started on SEPTRA DS while in the hospital discharged on 2-week course of that. I have instructed them to either follow-up locally with urology upon return to the area or with primary care at his daughter's location for suture removal sometime in the next couple weeks. Copies of his records have been provided so that he can take them with him. Physical Exam Const: COMMON NORMALS: no acute distress and patient oriented x3 Neck/C-Spine: OTHER: Good range of motion Lymph: OTHER: No groin lymphadenopathy Resp: OTHER: Unlabored. No audible wheezes. Good air movement GI: OTHER: Soft, nontender, no palpable masses. : OTHER: Scrotum without erythema. Wound is darian as expected. Incision looks healthy. Neuro: COMMON NORMALS: patient oriented x3 Psych: COMMON NORMALS: mental status grossly normal, Normal thought process present, cooperative and speech normal SPEECH: Yes normal speech THOUGHT PROCESS: Normal thought process present Urinary Catheter Management: Mckeon: Cath Placed During This Visit: yes, but has since been removed by the nurse Reason for Continuing Indwelling Catheter: Required Immobilization for Trauma or Surgery or Anesthesia Urinary Catheter Date of Insertion: 09/18/22 Urinary Catheter Time of Insertion: 21:23 Date Urinary Catheter Removed: 09/18/22 Time Urinary Catheter Discontinued: 20:10 Discharge Data Studies Completed and Pending Completed Studies During Hospitalization Category Date Time Status CT pelvis w con* [id number] Stat Cat Scan 09/18/22 17:14 Completed US scrotum [id number] Stat Ultrasound 09/18/22 16:11 Completed Pending at discharge Category Date Time Status Anaerobic Culture Stat Lab 09/18/22 20:35 Results Blood Culture Stat Lab 09/18/22 16:58 Results Wound Culture and Gram Stain Stat Lab 09/18/22 20:35 Results Pathology: Surgical [PTH] Routine Pth 09/18/22 21:38 Received Pathology: Surgical [PTH] Routine Pth 09/20/22 15:54 Ordered Radiology Impressions Scrotum Ultrasound 09/18/22 16:11 IMPRESSION: 1. Testicles demonstrate color blood flow bilaterally. 2. Large loculated right hydrocele. Pelvis CT 09/18/22 17:14 IMPRESSION: 1. Suspected layering hyperdense material in the urinary bladder, perhaps reflecting blood products or inflammatory exudate, please correlate clinically. 2. Right complex hydrocele as seen on same-day testicular ultrasound. 3. Diverticulosis without diverticulitis. 4. Scrotal edema seen, nonspecific. Laboratory Results WBC 7.6 10^3/uL (4.0-10.0) 09/22/22 05:05 RBC 4.37 10^6/uL (4.1-5.3) 09/22/22 05:05 Hgb 13.8 g/dL (11.7-16.6) 09/22/22 05:05 Hct 43.1 % (42.0-52.0) 09/22/22 05:05 MCV 98.6 fl (80-94) H 09/22/22 05:05 MCH 31.6 pg (28.0-34.0) 09/22/22 05:05 MCHC 32.0 g/dL (30.0-36.0) 09/22/22 05:05 RDW 12.5 % (12.1-15.1) 09/22/22 05:05 Plt Count 326 10^3/cmm (130-400) 09/22/22 05:05 MPV 9.5 fL (7.4-10.4) 09/22/22 05:05 Neut % (Auto) 59.6 % 09/22/22 05:05 Lymph % (Auto) 23.9 % 09/22/22 05:05 Lamar % (Auto) 8.7 % 09/22/22 05:05 Eos % (Auto) 5.1 % 09/22/22 05:05 Baso % (Auto) 1.1 % 09/22/22 05:05 Neut # (Auto) 4.52 10^3/uL (1.8-7.7) 09/22/22 05:05 Lymph # (Auto) 1.8 10^3/uL (0.8-4.8) 09/22/22 05:05 Lamar # (Auto) 0.7 10^3/uL (0.2-0.9) 09/22/22 05:05 Eos # (Auto) 0.4 10^3/uL (0.0-0.8) 09/22/22 05:05 Baso # (Auto) 0.1 10^3/uL (0.0-0.1) 09/22/22 05:05 Nucleated RBC % (auto) 0 % 09/22/22 05:05 Nucleated RBCs # 0.0 /100WBC 09/22/22 05:05 ESR 117 mm/hr (0-10) H 09/18/22 16:55 Sodium 137 mmol/L (136-145) 09/22/22 05:05 Potassium 4.2 mmol/L (3.5-5.1) 09/22/22 05:05 Chloride 99 mmol/L (98-107) 09/22/22 05:05 Carbon Dioxide 25 mmol/L (22-29) 09/22/22 05:05 Anion Gap 17.2 (5-19) 09/22/22 05:05 BUN 12 mg/dL (8-23) 09/22/22 05:05 Creatinine 1.0 mg/dL (0.7-1.2) 09/22/22 05:05 GFR Calculation 76.0 mL/min (90-130) L 09/22/22 05:05 Glucose 172 mg/dL (65-115) H 09/22/22 05:05 POC Glucose 184 mg/dL (70-110) H 09/23/22 07:39 Calculated Osmolality 288 mOsm/kg (285-295) 09/22/22 05:05 Lactic Acid 4.0 mmol/L (0.5-2.2) H 09/18/22 16:55 Lactate 0.9 mmol/L (0.5-2.2) 09/19/22 03:38 Calcium 9.6 mg/dL (8.5-10.5) 09/22/22 05:05 Total Bilirubin 0.3 mg/dL (0.15-1.2) 09/19/22 03:38 AST 34 U/L (0-40) 09/19/22 03:38 ALT 51 U/L (0-41) H 09/19/22 03:38 Alkaline Phosphatase 106 U/L (40-130) 09/19/22 03:38 C-Reactive Protein 202.7 mg/L (0.0-4.9) H 09/18/22 16:55 Total Protein 6.6 g/dL (6.6-8.7) 09/19/22 03:38 Albumin 2.9 g/dL (3.5-5.2) L 09/19/22 03:38 Globulin 3.7 g/dL (1.3-4.6) 09/19/22 03:38 Urine Color Yellow (Yellow) 09/18/22 19:01 Urine Appearance Clear (CLEAR) 09/18/22 19:01 Urine pH 5 (5-7) 09/18/22 19:01 Ur Specific [place] 1.000 (1.005-1.030) L 09/18/22 19:01 Urine Protein 1+ (Negative) H 09/18/22 19:01 Urine Glucose (UA) Norm (Normal) 09/18/22 19:01 Urine Ketones Negative (Negative) 09/18/22 19:01 Urine Blood Neg (Negative) 09/18/22 19:01 Urine Nitrate Negative (Negative) 09/18/22 19:01 Urine Bilirubin Neg (Negative) 09/18/22 19:01 Urine Urobilinogen Norm mg/dL (Negative) 09/18/22 19:01 Ur Leukocyte Esterase Trace (Negative) H 09/18/22 19:01 Urine RBC None /hpf (0-2) 09/18/22 19:01 Urine WBC 0-4 /hpf (0-5) H 09/18/22 19:01 Ur Squamous Epith Cells None /hpf (0-5) 09/18/22 19:01 Amorphous Sediment Not Reportable 09/18/22 19:01 Urine Bacteria None /hpf (NONE) 09/18/22 19:01 Vancomycin Trough 10.2 ug/mL (10-15) 09/20/22 18:40 Vitals Last Vital Signs Temp 97.9 F 09/23/22 04:00 Pulse 68 09/23/22 04:00 Resp 24 H 09/23/22 04:00 BP 103/66 09/23/22 04:00 Pulse Ox 95 09/23/22 04:00 O2 Del Method 09/22/22 20:00 O2 Flow Rate 2 09/20/22 20:00 Discharge Plan Discharge Patient Disposition: Home Condition: Stable Prescriptions: New sulfamethoxazole-trimethoprim 800-160 mg tablet 1 tab PO BID 7 Days Qty: 28 0RF hydrocodone-acetaminophen 5-325 mg tablet 1 tab PO Q8H PRN (Reason: pain) Qty: 10 0RF Continued allopurinol 300 mg tablet 300 mg PO DAILY diclofenac sodium 75 mg tablet,delayed release (DR/EC) 75 mg PO Q12H PRN (Reason: pain) Qty: 20 0RF tramadol 100 mg tablet 100 mg PO Q6H PRN (Reason: pain) Qty: 30 0RF atorvastatin 40 mg tablet 40 mg PO DAILY glipizide 10 mg tablet extended release 24hr 10 mg PO BID levothyroxine 50 mcg tablet 50 mcg PO DAILY pantoprazole 40 mg tablet,delayed release (DR/EC) 40 mg PO DAILY lisinopril 30 mg tablet 30 mg PO DAILY ProAir HFA 90 mcg/actuation HFA aerosol inhaler 2 puff INHALATION Q6H PRN (Reason: Shortness Of Breath Or Wheezing) metformin 500 mg tablet extended release 24 hr 1,000 mg PO BID Trulicity 1.5 mg/0.5 mL pen injector 1.5 mg SUBCUT Q7D zinc acetate 50 mg (zinc) Capsule 50 mg PO DAILY Discontinued levofloxacin 500 mg tablet 500 mg PO DAILY cefdinir 300 mg capsule 300 mg PO Q12H Discharge Orders: Discharge Order (Routine); Ordered 09/23/22 Ordered By: Adam Garnica Referrals: Ceasar St MD [Primary Care Provider] - (WILL SEE DR IN [place] GOING TO LIVE WITH DAUGHTER) Adam Garnica MD [Physician] - (SENT RECORDS WITH PATIENT LEAVING AREA WITH FAMILY WILL SEE UROLOGIST THERE ) Discharge Diet: Usual diet Discharge Activity: Increase activity as tolerated Patient Instructions: Sulfamethoxazole/Trimethoprim (By mouth) (Bactrim, Bactrim DS,..., Opioid Safety Activity Restrictions/Additional Instructions: The wound has been healing well. No evidence of progressive infection. You will need to continue dressing changes until the wound is small enough that no dressing can be packed in. I would use a 2 x 2 gauze sponge and loosely packed and no more than an inch. As the wound closes less packing will be required. Placed some gauze sponges over the packed sponge You can shower. Do not soak in a bathtub. Tight underwear will help keep the dressings in place. You have to non-dissolvable sutures that need to stay in place for at least a couple weeks. All the other sutures are dissolvable. The 2 permanent sutures can be removed by local physician if you are not back in this area by that time. Follow-up here to be arranged or as needed. Your prescription for SULFAMETHOXAZOLE/trimethoprim has been sent to [facility] pharmacy downstairs. A 2-week prescription was sent. Discharge Attestations Time Spent in Discharge Care*: greater than 30 min Quality Metrics Clinical Quality Measures [ No reported AMI, CVA or VTE this stay] Coding Level of Care Code Acute Chg FW DC note Exam Expanded Problem Focused Diagnoses Epididymal abscess N45.4 Morbid obesity E66.01 Hypothyroidism E03.9 Hypertension I10 GERD (gastroesophageal reflux disease) K21.9 Hyperlipidemia E78.5 Type 2 diabetes mellitus E11.9
[2022-09-23] MEDS: insulin lispro 100 unit/1 mL SUBCUT (08:45)
[2022-09-23] MEDS: atorvastatin 40 mg Tablet PO (08:45)
[2022-09-23] MEDS: pantoprazole DR 40 mg Tablet PO (08:45)
[2022-09-23] MEDS: sulfamethoxazole-trimeth DS 160-800 mg Tablet 1 TAB PO (08:45)
[2022-09-23] MEDS: levothyroxine 50 mcg Tablet PO (08:45)
[2022-09-23] MEDS: allopurinol 300 mg Tablet PO (08:45)
[2022-09-23] MEDS: lisinopril 10 mg Tablet 30 MG PO (08:45)
[2022-09-23 09:09] VITALS: PULSE 96; RESP 18; O2SAT 95
[2022-09-23 10:21] VITALS: RESP 18
[2022-09-23] MEDS: morphine 4 mg/mL SDV 1 mL 2 MG IVP (10:21)
[2022-09-23 10:57] VITALS: RESP 18
--- NOTE | 2022-09-23 11:04 | PM.PN ---
Subjective Subjective: Seen and examined. No acute events overnight. Glucose stable. Vitals/I&O/Wt Last Vital Signs Temp 97.7 F 09/23/22 08:00 Pulse 96 09/23/22 09:09 Resp 18 09/23/22 10:57 BP 118/73 09/23/22 08:00 Pulse Ox 95 09/23/22 09:09 O2 Del Method 09/23/22 09:09 O2 Flow Rate 2 09/20/22 20:00 09/22/22 09/23/22 09/23/22 22:59 06:59 14:59 Intake Total 290 / 1450 0 / 1450 480 / 480 Balance 290 / 1450 0 / 1450 480 / 480 Physical Exam Narrative: General: No acute distress, AO x3 HEENT: EOMI Chest: Normal vesicular breath sounds, no added sounds, equal good air entry bilaterally CVS: S1-S2 regular, no murmurs, no tachycardia, no gallops, no rubs Abdomen: Soft, nontender Neuro: Grossly nonfocal. Extremities: No edema : deferred Urinary Catheter Management: Mckeon: Cath Placed During This Visit: yes, but has since been removed by the nurse Reason for Continuing Indwelling Catheter: Required Immobilization for Trauma or Surgery or Anesthesia Urinary Catheter Date of Insertion: 09/18/22 Urinary Catheter Time of Insertion: 21:23 Date Urinary Catheter Removed: 09/18/22 Time Urinary Catheter Discontinued: 20:10 Data 09/22/22 05:05 09/22/22 05:05 Micro: Microbiology 09/18/22 20:35 Gram Stain - Final Scrotum Anaerobic Culture - Preliminary Wound Culture - Final A&P Assessment and plan (1) Epididymal abscess: (2) Swelling of right half of scrotum: Plan Patient presenting with worsening swelling over the scrotum, suspected to have scrotal abscess, taken to the OR for urgent surgical exploration. Status post drainage of epididymal abscess and right scrotal orchiectomy. Wound culture with superficial skin paris- NO MRSA or resistant isoaltes identified per discussion with lab Planned to be discharged today with po bactrim. D/c Zosyn and vancomycin Continue home doses of allopurinol statins. Moderate Insulin sliding scale for diabetic management while inpatient, FS well controlled pt to continue home medication for diabetes at nm and to follow up with PCP Attestations Medical Necessity Statement*: getting discharged today Coding Level of Care Code Acute Medical Radiation Dosimetrist for Chg Fwd Diagnoses Epididymal abscess N45.4 Swelling of right half of scrotum N50.89
== END 2022-09-23 10:58 | disposition home or self-care (01) | DRG 711 ==
LOC: ER 18:16 → OPS 20:28 → MEDSURG 20:42
PROVIDERS: Internal Medicine; Physician Assistant; Student in an Organized Health Care Education/Training Program; Admitting Provider Urology; Emergency Provider Emergency Medicine; PCP Family Medicine; Visit Provider Urology
PROC: 0VT90ZZ Resection of Right Testis, Open Approach (ICD-10-PCS; CPT 55110; principal; 2022-09-18 19:40)
PROC: 0VT90ZZ Resection of Right Testis, Open Approach (ICD-10-PCS; 2022-09-18 19:40)
DX: N45.4 Abscess of epididymis or testis (principal); Z68.42 Body mass index [BMI] 45.0-49.9, adult; E66.01 Morbid (severe) obesity due to excess calories; I10 Essential (primary) hypertension; E11.9 Type 2 diabetes mellitus without complications; K21.9 Gastro-esophageal reflux disease without esophagitis; E78.5 Hyperlipidemia, unspecified; E03.9 Hypothyroidism, unspecified; G47.30 Sleep apnea, unspecified; Z79.84 Long term (current) use of oral hypoglycemic drugs
CPT/HCPCS: 36415; 36416; 51702; 72193; 76870; 80048; 80053; 80202; 81001; 82962; 83605; 85025; 85651; 86140; 87040; 87070; 87075; 87205; 87641; 88305; 96365; 96367; 96372; 96375; 99285; J0330; J1170; J1815; J2270; J2370; J2405; J2543; J2704; J2710; J3010; J3370; J3490; J7030; J7040; Q9967

== ENCOUNTER 2023-01-18 21:46 | Emergency (ER) | payer MEDICAID, SELFPAY ==
[2023-01-18 22:12] VITALS: BP 174/104; PULSE 72; RESP 20; TEMP 36.8; O2SAT 98
--- NOTE | 2023-01-18 23:40 | ED_ITS ---
HPI - General Adult General: Chief complaint: General Medical Stated complaint: tooth infection, lips are numb Time Seen by Provider: 01/18/23 22:43 History of Present Illness: Patient is a 62-year-old male comes to the ED with dental pain. Patient says symptoms started approximately 5 days ago. He is having dental pain and swelling of the left lower mandible near incisors. He rates pain currently an 8 out of 10. Patient went and saw all his PCP and they put him on a prescription for Keflex. When he first started taking Keflex his swelling went down. Within the last 24 hours his swelling in left lower mandible increased. Associated symptoms: Deny chest pain, dyspnea, headache(s), nausea, rash, palpitations or vomiting Review of Systems Const: Denies: fever(s), chills or fatigue Eyes: Denies: change in vision or eye discomfort ENMT: Reports: dental pain; Denies: throat pain, odynophagia, nasal discharge or nasal congestion Card: Denies: chest pain, palpitations, edema, swelling of feet/ankles, dyspnea on exertion or orthopnea Resp: Denies: dyspnea, productive cough or non-productive cough GI: Denies: abdominal pain, nausea, vomiting, diarrhea, constipation or hematochezia : Denies: flank pain, difficulty urinating, dysuria or hematuria Musc: Denies: neck pain, back pain or extremity swelling Skin/Breast: Denies: rash or new lesions Neuro: Denies: headache(s), numbness in extremities or weakness in extremities PFSH ED PFSH: Medical History Epididymal abscess GERD (gastroesophageal reflux disease) Hyperlipidemia Hypertension Hypothyroidism Morbid obesity Type 2 diabetes mellitus Social History Smoking and tobacco status: never smoked Physical Exam Const: COMMON NORMALS: patient oriented x3 HENMT: COMMON NORMALS: normocephalic HEAD & SCALP: normocephalic MOUTH: Normal oral and palatal mucosa present THROAT: posterior oropharynx normal and uvula midline OTHER: Left lower mandible swelling. Poor dentition and gingival edema, erythema located left lower jaw near incisors. Neck/C-Spine: COMMON NORMALS: supple GENERAL: Yes normal visual inspection Resp: COMMON NORMALS: normal respiratory effort, No retractions, No use of accessory muscles and clear to auscultation bilaterally AUSCULTATION: clear to auscultation bilaterally Cardio: COMMON NORMALS: regular rate, regular rhythm, S1 normal heart sound present, S2 normal heart sound present, No gallops present (Cardio), No clicks present (Cardio), No murmurs present (Cardio) and Peripheral pulses 2+ throughout RATE: regular rate RHYTHM: regular rhythm HEART SOUNDS: S1 normal heart sound present and S2 normal heart sound present PERIPHERAL PULSES: Peripheral pulses 2+ throughout GI: COMMON NORMALS: Normal to inspection, nondistended, normoactive bowel sounds present, Soft to palpation, non-tender and no masses PALPATION: Yes Soft to palpation : COMMON NORMALS: Yes no CVA tenderness BLADDER/KIDNEY EXAM: Yes no CVA tenderness Back/Pelvis: COMMON NORMALS: no CVA tenderness Extremity: COMMON NORMALS: normal to inspection Neuro: COMMON NORMALS: patient oriented x3 GAIT: Yes Normal gait present Skin: GENERAL SKIN EXAM: dry skin Course Vital Signs: Vital signs: Vital Signs Temperature 98.2 F 01/19/23 00:26 Pulse Rate 79 01/19/23 00:26 Respiratory Rate 20 H 01/19/23 00:26 Blood Pressure 152/91 01/19/23 00:26 Pulse Oximetry 96 01/19/23 00:26 Oxygen Delivery Me thod Room Air 01/18/23 22:12 MDM - General Adult Medical Decision Making Patient is a 62-year-old male comes to the ED with dental pain. Patient says symptoms started approximately 5 days ago. He is having dental pain and swelling of the left lower mandible near incisors. He rates pain currently an 8 out of 10. Patient went and saw all his PCP and they put him on a prescription for Keflex. When he first started taking Keflex his swelling went down. Within the last 24 hours his swelling in left lower mandible increased. Vital stable. Left lower mandible swelling. Poor dentition and gingival edema, erythema located left lower jaw near incisors. Patient was given dose of IM antibiotic and Decadron to help with swelling. He was stable for discharge home and lina gnosed with dental infection and sent home with a prescription for clindamycin and ibuprofen 800 mg. Told to follow-up with dentist as soon as possible to have dental infection treated. Return to ED precautions given. Patient understood agree with plan. Discharge Plan Discharge Patient Disposition: Home Clinical Impression: Dental infection Condition: Stable Prescriptions: New clindamycin HCl 150 mg capsule 300 mg PO QID 10 Days Qty: 80 0RF ibuprofen 800 mg tablet 800 mg PO Q8H PRN (Reason: pain) Qty: 20 0RF No Action allopurinol 300 mg tablet 300 mg PO DAILY diclofenac sodium 75 mg tablet,delayed release (DR/EC) 75 mg PO Q12H PRN (Reason: pain) Qty: 20 0RF tramadol 100 mg tablet 100 mg PO Q6H PRN (Reason: pain) Qty: 30 0RF atorvastatin 40 mg tablet 40 mg PO DAILY glipizide 10 mg tablet extended release 24hr 10 mg PO BID levothyroxine 50 mcg tablet 50 mcg PO DAILY pantoprazole 40 mg tablet,delayed release (DR/EC) 40 mg PO DAILY lisinopril 30 mg tablet 30 mg PO DAILY ProAir HFA 90 mcg/actuation HFA aerosol inhaler 2 puff INHALATION Q6H PRN (Reason: Shortness Of Breath Or Wheezing) metformin 500 mg tablet extended release 24 hr 1,000 mg PO BID Trulicity 1.5 mg/0.5 mL pen injector 1.5 mg SUBCUT Q7D zinc acetate 50 mg (zinc) Capsule 50 mg PO DAILY hydrocodone-acetaminophen 5-325 mg tablet 1 tab PO Q8H PRN (Reason: pain) Qty: 10 0RF Discharge Orders: Discharge ED (Routine); Ordered 01/18/23 Ordered By: Maco Adamson Referrals: Ceasar St MD [Primary Care Provider] - Discharge Diet: Regular Discharge Activity: Increase activity as tolerated Patient Instructions: Dental Abscess (ED) Activity Restrictions/Additional Instructions: Follow-up with dentist as soon as possible to have dental infection treated. Take medications as prescribed. Return to the ER or your medical provider if condition worsens. Please read and understand discharge instructions. Thank you for choosing [facility] for your healthcare needs today. Please realize this is an emergency room and that we are providing you with a medical screening exam and this may not be complete and all inclusive of all the testing and or work up that you may need to determine your ailment or severity of your illness. It is very important that you follow up as instructed or that you return to the Emergency Department should you have concerns or if your condition changes or worsens in any way. Coding Level of Care Code ED Gas Torch Solderer for Melly Horton
[2023-01-18] MEDS: dexamethasone 10 mg/mL INJ IM (23:59)
[2023-01-19] MEDS: cefTRIAXone 1,000 MG in water for injection-sterile 2.1 ML 2.1 MG IM (00:02)
[2023-01-19] MEDS: HYDROcodone-acetaminophen 5-325 mg Tablet 2 TAB PO (00:09)
[2023-01-19 00:26] VITALS: BP 152/91; PULSE 79; RESP 20; TEMP 36.8; O2SAT 96
== END 2023-01-19 00:28 | disposition home or self-care (01) ==
PROVIDERS: Emergency Provider Physician Assistant; PCP Family Medicine
DX: K04.7 Periapical abscess without sinus (principal); Z79.85 Long-term (current) use of injectable non-insulin antidiabetic drugs; Z79.84 Long term (current) use of oral hypoglycemic drugs; E78.5 Hyperlipidemia, unspecified; I10 Essential (primary) hypertension; E11.9 Type 2 diabetes mellitus without complications
CPT/HCPCS: 96372; 99284; J0696; J1100

== ENCOUNTER → 2023-05-26 13:42 | Outpatient (BNVA) | payer MEDICAID, SELFPAY | PROVIDERS: PCP Family Medicine; Referring Provider Family Medicine; Visit Provider Nurse Practitioner Family | DX: M17.11 Unilateral primary osteoarthritis, right knee | CPT/HCPCS: 73560; 73565; 99213 ==

== ENCOUNTER 2023-06-04 12:26 | Outpatient (CLI) | payer MEDICAID, SELFPAY ==
--- NOTE | 2023-06-04 12:32 | MR_ITS ---
WS: [id number] MRI RIGHT KNEE NONCONTRAST TECHNIQUE: Axial PD, coronal PD fat sat, coronal PD, sagittal PD, and sagittal PD fat-sat images obta ined. CLINICAL INFORMATION: R KNEE PAIN/PAIN X 2 MONTHS COMPARISON: None. FINDINGS: Moderate to advanced tricompartmental arthritis RIGHT knee worse medial joint compartment and patello femoral articulation. Distal quadriceps and patellar tendons are intact. Hypertrophic patella. Grade IV chondromalacia patella with a small amount of subchondral edema. Chondromalacia worst lateral romero llar facet. Small suprapatellar effusion. Small lobulated popliteal cyst measuring 5.3 x 2.1 cm. Norm al ACL and PCL. Chronic thinning of the medial and lateral meniscus. Grade IV chondromalacia involving the medial fem oral condyle with advanced narrowing of the medial joint compartment. Associated subchondral edema in the tibial plateau. Increased signal with fluid and edema along the superficial and deep fibers of t he medial collateral ligament. Normal lateral collateral ligament. Tear involving the posterior horn medial meniscus extending to the meniscal root with blunting of the posterior horn. IMPRESSION: * ACL and PCL are intact. * Tear involving the posterior horn medial meniscus extending to the meniscal root with blunting of the posterior horn. * Grade IV chondromalacia involving the medial joint compartment with subchondral edema worse involv ing the femoral condyle. * Grade 2 injury medial collateral ligament with increased signal. Fluid and edema along the superfi cial and deep fibers. * Advanced chondromalacia patella with moderate suprapatellar effusion. * Small lobulated popliteal cyst described above. Outbridge grading: grade IV: full-thickness cartilage loss with underlying bone reactive changes
== END 2023-06-04 12:27 | disposition home or self-care (01) ==
LOC: RAD 12:28
PROVIDERS: PCP Family Medicine; Visit Provider Family Medicine
DX: S83.241A Other tear of medial meniscus, current injury, right knee, initial encounter (principal); S89.81XA Other specified injuries of right lower leg, initial encounter; X58.XXXA Exposure to other specified factors, initial encounter; M22.41 Chondromalacia patellae, right knee; M71.21 Synovial cyst of popliteal space [Baker], right knee
CPT/HCPCS: 73721

== ENCOUNTER → 2023-06-11 10:40 | Outpatient (BNVA) | payer MEDICAID, SELFPAY | PROVIDERS: PCP Family Medicine; Visit Provider Nurse Practitioner Family | DX: M17.11 Unilateral primary osteoarthritis, right knee (principal); S83.206A Unspecified tear of unspecified meniscus, current injury, right knee, initial encounter; X58.XXXA Exposure to other specified factors, initial encounter | CPT/HCPCS: 20610; 99213; J1100; J2795; J3301 ==

== ENCOUNTER 2023-07-22 18:38 | Emergency (ER) | payer MEDICAID, SELFPAY ==
--- NOTE | 2023-07-22 18:41 | USR_ITS ---
PROCEDURE INFORMATION: Exam: US Scrotum and Artery or Vein of the Abdominal and/or Reproductive Organs, Limited Scrotum Exam date and time: 07/22/2023 7:44 PM Age: 62 years old Clinical indication: Scrotum pain; Prior surgery; Surgery date: 6+ months; Surgery type: Resection of entire right scrotum and contents C/O large, loculated RT hydrocele with abscess. ; Additional info: Testicle pain TECHNIQUE: Imaging protocol: Real-time ultrasound of the scrotum. Real-time duplex ultrasound scan of the arterial or venous flow with amanda scale, color Doppler flow and spectral waveform analysis with image documentation. Limited Duplex exam focused of the scrotum. Duplex exam was performed to evaluate for torsion and other vascular conditions. COMPARISON: US scrot [id number] 09/18/2022 4:25 PM FINDINGS: Right testicle: Surgically absent. Left testicle: Normal. No mass. No torsion. Normal Duplex waveforms and color doppler. Epididymides: Normal left-side. Absent right-side. Scrotum: No large hydrocele at this time. US/US scrotum [id number] IMPRESSION: 1. Surgically absent right testicle and epididymis. 2. Normal left side structures. 3. No acute finding seen today.
[2023-07-22 19:04] VITALS: BP 180/127; PULSE 74; RESP 17; TEMP 36.8; O2SAT 96; BMI 46.0
--- NOTE | 2023-07-22 19:18 | W.ED.MALEGU ---
HPI - Male Genitourinary General: Chief complaint: Urogenital-Male Stated complaint: testicle pain Time Seen by Provider: 07/22/23 19:18 History of Present Illness: 62-year-old male presents emergency department with complaints of left testicular pain. Patient states that his left testicle pain started approximately 3:00 this morning and is intermittent. He denies known injury or trauma or recent sexual activity. He states he has had a previous right orchiectomy secondary to a torsion. He states his current pain is a 2 out of 10, vague and intermittent. Patient states he feels like his left testicular pain is a fullness to the testicle. Review of Systems General: Reports: 10 or more systems reviewed and unremarkable except in HPI and below : Reports: testicular pain; Denies: flank pain, genital pain, penile discharge, testicular mass or scrotal swelling PFSH ED PFSH: Medical History Epididymal abscess GERD (gastroesophageal reflux disease) Hyperlipidemia Hypertension Hypothyroidism Morbid obesity Type 2 diabetes mellitus Social History Smoking and tobacco/nicotine status: never used tobacco/nicotine Physical Exam Narrative: EXAM NARRATIVE: Constitutional: the patient appears well nourished and with normal developement. Vital signs reviewed as documented. HENMT: Normocephalic, atraumatic. Extermal ears with normal appearance without drainage. Nose without drainage, normal appearance. Mucus membranes moist. Neck is supple, No jugular venous distension, trachea is midline, no appreciable carotid bruits. No lymphadenopathy. No meningeal signs. Flexion, extension and lateral rotation is without pain. Eyes: Pupils are equal, round, reactive to light and accomidation. No scleral icterus. Extra-ocular movement are intact. Thorax is symmetrical and with equal rise and fall with respirations. Resp: Lungs are clear to auscultation. No wheezes, rales, crackles or ronchi at pesent. Cardio: Regular rate and rhythm. Positive S1, S2. No appreciable murmurs, rubs or gallops. GI: Abdominal exam reveals normal bowel sounds to all quadrants. No organomegaly. No obvious palpable masses noted. No hepatomegaly appreciated. Soft, nontender to palpation. Extremity: Extremities are non-edematous and both femoral and pedal pulses are 2+ and equal bilaterally. Moves all extremities well, sensation in all extremities. Neuro: Alert and oriented x4, person, place, time and situation. Cranial nerves II through XII are grossly intact, there is no focal neurological deficits that I can appreciate at present. Motor strength in the upper and lower extremities are equal and bilateral 5/5. Psych: Cooperative, calm, normal thought process, appropriate judgment. Skin: No lesions, rashes. No gross abnormalities noted. Back: Symmetrical, no obvious deformity, No CVA tenderness Course Vital Signs: Vital signs: Vital Signs Temperature 98.2 F 07/22/23 19:04 Pulse Rate 81 07/22/23 22:50 Respiratory Rate 18 07/22/23 22:50 Blood Pressure 153/93 07/22/23 22:50 Pulse Oximetry 94 07/22/23 22:50 Oxygen Delivery Me thod Room Air 07/22/23 19:04 MDM - Male Medical Decision Making Physical exam completed and documented, I will obtain a CBC as well as CMP and an ultrasound with urinalysis. Medical Records I reviewed the patient's medical records. Lab Data I reviewed the patient's lab results. 07/22/23 21:40 07/22/23 21:40 Radiology Impressions Scrotum Ultrasound 07/22/23 18:41 IMPRESSION: 1. Surgically absent right testicle and epididymis. 2. Normal left side structures. 3. No acute finding seen today. Laboratory Results WBC 6.61 10^3/uL (3.29-11.43) 07/22/23 21:40 RBC 4.51 10^6/uL (3.85-5.65) 07/22/23 21:40 Hgb 14.30 g/dL (11.27-16.99) 07/22/23 21:40 Hct 44.2 % (37-53) 07/22/23 21:40 MCV 98.0 fl (82-101) 07/22/23 21:40 MCH 31.7 pg (27-33) 07/22/23 21:40 MCHC 32.4 g/dL (30-55) 07/22/23 21:40 RDW 14.1 % (12.1-15.1) 07/22/23 21:40 Plt Count 230 10^3/cmm (157-399) 07/22/23 21:40 MPV 9.1 fL (7.4-10.4) 07/22/23 21:40 Neut % (Auto) 54.1 % 07/22/23 21:40 Lymph % (Auto) 33.1 % 07/22/23 21:40 [place] % (Auto) 7.9 % 07/22/23 21:40 Eos % (Auto) 3.8 % 07/22/23 21:40 Baso % (Auto) 0.8 % 07/22/23 21:40 Neut # (Auto) 3.58 10^3/uL (1.8-7.7) 07/22/23 21:40 Lymph # (Auto) 2.2 10^3/uL (0.8-4.8) 07/22/23 21:40 [place] # (Auto) 0.5 10^3/uL (0.2-0.9) 07/22/23 21:40 Eos # (Auto) 0.3 10^3/uL (0.0-0.8) 07/22/23 21:40 Baso # (Auto) 0.1 10^3/uL (0.0-0.1) 07/22/23 21:40 Nucleated RBC % (auto) 0 % 07/22/23 21:40 Nucleated RBCs # 0.0 /100WBC 07/22/23 21:40 Sodium 140 mmol/L (136-145) 07/22/23 21:40 Potassium 3.8 mmol/L (3.5-5.1) 07/22/23 21:40 Chloride 102 mmol/L (98-107) 07/22/23 21:40 Carbon Dioxide 26 mmol/L (22-29) 07/22/23 21:40 Anion Gap 15.8 (5-19) 07/22/23 21:40 BUN 9 mg/dL (8-23) 07/22/23 21:40 Creatinine 1.0 mg/dL (0.7-1.2) 07/22/23 21:40 GFR Calculation 75.7 mL/min (90-130) L 07/22/23 21:40 Glucose 88 mg/dL (65-115) 07/22/23 21:40 Calculated Osmolality 288 mOsm/kg (285-295) 07/22/23 21:40 Calcium 9.0 mg/dL (8.5-10.5) 07/22/23 21:40 Total Bilirubin 0.5 mg/dL (0.15-1.2) 07/22/23 21:40 AST 18 U/L (0-40) 07/22/23 21:40 ALT 30 U/L (0-41) 07/22/23 21:40 Alkaline Phosphatase 82 U/L (40-130) 07/22/23 21:40 Total Protein 6.9 g/dL (6.6-8.7) 07/22/23 21:40 Albumin 4.3 g/dL (3.5-5.2) 07/22/23 21:40 Globulin 2.6 g/dL (1.3-4.6) 07/22/23 21:40 Urine Color Colorless (Yellow) 07/22/23 19:33 Urine Appearance Clear (CLEAR) 07/22/23 19:33 Urine pH 6 (5-7) 07/22/23 19:33 Ur Specific [place] 1.010 (1.005-1.030) 07/22/23 19:33 Urine Protein Neg (Negative) 07/22/23 19:33 Urine Glucose (UA) Norm (Normal) 07/22/23 19:33 Urine Ketones Negative (Negative) 07/22/23 19:33 Urine Blood Neg (Negative) 07/22/23 19:33 Urine Nitrate Negative (Negative) 07/22/23 19:33 Urine Bilirubin Neg (Negative) 07/22/23 19:33 Urine Urobilinogen Norm mg/dL (Negative) 07/22/23 19:33 Ur Leukocyte Esterase Trace (Negative) H 07/22/23 19:33 Urine RBC 0-4 /hpf (0-2) H 07/22/23 19:33 Urine WBC 5-10 /hpf (0-5) H 07/22/23 19:33 Ur Squamous Epith Cells Rare /hpf (0-5) 07/22/23 19:33 Amorphous Sediment Not Reportable 07/22/23 19:33 Urine Bacteria Trace /hpf (NONE) 07/22/23 19:33 Urine Mucus None /hpf 07/22/23 19:33 C.trachomatis RNA (TMA) Not detected (NOT DETECTED) 07/22/23 19:33 Chlamydia/GC Comment See note 10/17/23 19:33 N.gonorrhoeae RNA (TMA) Not detected (NOT DETECTED) 07/22/23 19:33 All radiology interpretation(s) finalized by discharge ED provider radiology interpretation(s): COMPARISON: US scrotum [id number] 09/18/2022 4:25 PM FINDINGS: Right testicle: Surgically absent. Left testicle: Normal. No mass. No torsion. Normal Duplex waveforms and color doppler. Epididymides: Normal left-side. Absent right-side. Scrotum: No large hydrocele at this time. US/US scrotum [id number] IMPRESSION: 1. ? Surgically absent right testicle and epididymis. 2. ? Normal left side structures. 3. ? No acute finding seen today. ? Discharge Plan Discharge Patient Disposition: Home Clinical Impression: Scrotal irritation Condition: Stable Prescriptions: No Action allopurinol 300 mg tablet 300 mg PO DAILY diclofenac sodium 75 mg tablet,delayed release (DR/EC) 75 mg PO Q12H PRN (Reason: pain) Qty: 20 0RF tramadol 100 mg tablet 100 mg PO Q6H PRN (Reason: pain) Qty: 30 0RF atorvastatin 40 mg tablet 40 mg PO DAILY glipizide 10 mg tablet extended release 24hr 10 mg PO BID levothyroxine 50 mcg tablet 50 mcg PO DAILY pantoprazole 40 mg tablet,delayed release (DR/EC) 40 mg PO DAILY lisinopril 30 mg tablet 30 mg PO DAILY ProAir HFA 90 mcg/actuation HFA aerosol inhaler 2 puff INHALATION Q6H PRN (Reason: Shortness Of Breath Or Wheezing) metformin 500 mg tablet extended release 24 hr 1,000 mg PO BID Trulicity 1.5 mg/0.5 mL pen injector 1.5 mg SUBCUT Q7D zinc acetate 50 mg (zinc) Capsule 50 mg PO DAILY hydrocodone-acetaminophen 5-325 mg tablet 1 tab PO Q8H PRN (Reason: pain) Qty: 10 0RF ibuprofen 800 mg tablet 800 mg PO Q8H PRN (Reason: pain) Qty: 20 0RF Discharge Orders: Discharge ED (Routine); Ordered 07/22/23 Ordered By: Dilip Bernabe Referrals: Ceasar St MD [Primary Care Provider] - Discharge Diet: Advance as tolerated Discharge Activity: Resume usual activity Coding Level of Care Code ED [place] [employer] for Melly Horton
[2023-07-22 19:51] LABS: Add Urine Microscopic? YES; Bilirubin Urine Neg (Negative); Blood Urine Neg (Negative); Glucose Urine UA Norm (Normal); Ketones Urine Negative (Negative); Leukocyte Esterase Urine Trace (Negative); Nitrate Urine Negative (Negative); Protein Urine Neg (Negative); Urine Appearance Clear (CLEAR); Urine Color Colorless (Yellow); Urobilinogen Urine Norm (Negative); pH Urine 6 (5-7)
[2023-07-22 20:07] LABS: Bacteria Urine TRACE /hpf; RBC Urine 0-4 /hpf (0-2); Squamous Epithelial Cell Urine RARE /hpf (0-5)
[2023-07-22 20:08] LABS: Add Urine Culture? No
[2023-07-22 21:50] LABS: Basophils # 0.1 10^3/uL (0.0-0.1); Basophils % 0.8 %; Eosinophils # 0.3 10^3/uL (0.0-0.8); Eosinophils % 3.8 %; Hematocrit 44.2 % (37-53); Lymphocytes # 2.2 10^3/uL (0.8-4.8); Lymphocytes % 33.1 %; Mean Corpuscular HGB Conc 32.4 g/dL (30-55); Mean Corpuscular Hemoglobin 31.7 pg (27-33); Mean Platelet Volume 9.1 fL (7.4-10.4); Monocytes # 0.5 10^3/uL (0.2-0.9); Monocytes % 7.9 %; Neutrophils # 3.58 10^3/uL (1.8-7.7); Neutrophils % 54.1 %; Nucleated Red Blood Cells % 0 %; Platelet Count 230 10^3/cmm (157-399); Red Blood Count 4.51 10^6/uL (3.85-5.65); Red Cell Distribution Width 14.1 % (12.1-15.1); White Blood Count 6.61 10^3/uL (3.29-11.43)
[2023-07-22 22:00] VITALS: BP 157/115; PULSE 84; RESP 17; O2SAT 96
[2023-07-22 22:04] LABS: Alanine Aminotransferase 30 U/L (0-41); Albumin Level 4.3 g/dL (3.5-5.2); Alkaline Phosphatase 82 U/L (40-130); Anion Gap 15.8 (5-19); Aspartate Amino Transferase 18 U/L (0-40); Blood Urea Nitrogen 9 mg/dL (8-23); Carbon Dioxide 26 mmol/L (22-29); Chloride 102 mmol/L (98-107); Globulin 2.6 g/dL (1.3-4.6); Glomerular Filtration Rate 75.7 mL/min (90-130); Glucose 88 mg/dL (65-115); Osmolality Calculated 288 mOsm/kg (285-295); Potassium 3.8 mmol/L (3.5-5.1); Sodium 140 mmol/L (136-145); Total Bilirubin 0.5 mg/dL (0.15-1.2); Total Protein 6.9 g/dL (6.6-8.7)
[2023-07-22 22:50] VITALS: BP 153/93; PULSE 81; RESP 18; O2SAT 94
[2023-07-24 17:59] LABS: Chlamydia Trachomatis RNA TMA NOT DETECTED (NOT DETECTED); Neisseria Gonorrhoeae RNA, TMA NOT DETECTED (NOT DETECTED)
== END 2023-07-22 22:52 | disposition home or self-care (01) ==
PROVIDERS: Emergency Provider Internal Medicine; PCP Family Medicine
DX: N50.82 Scrotal pain (principal); Z79.84 Long term (current) use of oral hypoglycemic drugs; Z79.85 Long-term (current) use of injectable non-insulin antidiabetic drugs; E78.5 Hyperlipidemia, unspecified; I10 Essential (primary) hypertension; E11.9 Type 2 diabetes mellitus without complications
CPT/HCPCS: 36415; 76870; 80053; 81001; 85025; 87491; 87591; 99284